=== PATIENT | female | born 1955 | race Caucasian/White ===

== ENCOUNTER 2022-04-07 14:04 | Outpatient (CLI) | payer MEDICARE, BC, SELFPAY ==
--- OUTSIDE RECORDS SUMMARY | 2022-04-07 14:07 | XMS_ITS | Encounter Summary ---
:1955 Author Organization [facility] Address [address] [place] [address] Care Team Providers Name Role Phone Unavailable Primary Care Provider Unavailable Encounter Details Date Type Department Care Team Description 11/11/2021 Clinical Support Healthy Living Brooke Boothe M.D., Ph.D. [address] [place] [phone] Pain Low Back Chronic (Primary Dx); Program in [place], HailyJocelynn Naik PLamont, D.P.T., [facility] [address] [place] [address] [facility] [address] [place] [phone] Social History Tobacco Use Types Packs/Day Years Used Date Smoking Tobacco: Never Smokeless Tobacco: Never Alcohol Habits Answer Date Recorded How often do you have a drink containing alcohol? 2-4 times a month 10/10/2021 How many drinks containing alcohol do you have on a 1 or 2 10/10/2021 typical day when you are drinking? How often do you have six or more drinks on one Never 10/10/2021 occasion? Comment: Not asked Social Isolation Answer Date Recorded In a typical week, how many times do you More than three jewell es a week 10/10/2021 talk on the phone with family, friends, or neighbors? How often do you get together with friends Three times a wee k 10/10/2021 or relatives? How often do you attend anglican or 1 to 4 times per year 09/23 yazdanism services? Do you belong to any clubs or No 10/10/2021 organizations such as anglican groups, unions, fraternal or athletic groups, or school groups? How often do you attend meetings of the Never 10/10/2021 clubs or organizations you belong to? Are you now , , , 10/10/2021 , never or living with a partner? Physical Activity Answer Date Recorded On average, how many days per week do you engage in moderate to 4 days 10/10/2021 strenuous exercise (like walking fast, running, jogging, dancing, swimming, biking, or other activities that cause a light or heavy sweat)? On average, how many minutes do you engage in exercise at th is 50 min 10/10/2021 level? Stress Answer Date Recorded Do you feel stress - tense, restless, nervous, or Only a lit tle 10/10/2021 anxious, or unable to sleep at night because your mind is troubled all the time - these days? Financial Resource Strain Answer Date Recorded How hard is it for you to pay for the very basics like Not h gar[place] at all 10/10/2021 food, housing, medical care, and heating? Intimate Partner Violence Answer Date Recorded Within the last year, have you been afraid of your partner o r No 10/10/2021 ex-partner? Within the last year, have you been humiliated or emotionall y No 10/10/2021 abused in other ways by your partner or ex-partner? Within the last year, have you been kicked, hit, slapped, or No 10/10/2021 otherwise physically hurt by your partner or ex-partner? Within the last year, have you been raped or forced to have any No 10/10/2021 kind of sexual activity by your partner or ex-partner? Food Insecurity Answer Date Recorded Within the past 12 months, you worried that your food would Never true 10/10/2021 run out before you got money to buy more. Within the past 12 months, the food you bought just didn't N ever true 10/10/2021 last and you didn't have money to get more. Transportation Needs Answer Date Recorded In the past 12 months, has lack of transportation kept you f rom No 10/10/2021 medical appointments or from getting medications? In the past 12 months, has lack of transportation kept you f rom No 10/10/2021 meetings, work, or getting things needed for daily living? Housing Stability Answer Date Recorded In the last 12 months, was there a time when you were not ab le No 10/10/2021 to pay the mortgage or rent on time? In the last 12 months, how many places have you lived? 1 10/10/2021 In the last 12 months, was there a time when you did not hav e a No 10/10/[address] sleep or slept in a long-term (including now)? Education Answer Date Recorded What is the highest level of school Associate degree: damien brand, 08/29/2021 you have completed or the highest technical, or vocational p josette degree you have received? 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 female being seen at [facility] regarding Concerns about back pain and neck pain, as well as osteoporosis diagnosis concerns. She recently began Reclast per Dr. Boothe recommendations. She is active, going to the gym 3 times per week, and walking often. She performs a circuit of weight machines with an emphasis on upper body work. She retired 2 years ago. She notes pain in the low back with extended bouts of walking, and with certain other machine weights in the gym setting such as knee extension and chest flys. T- score noted is -3.4 Objective Able to transition to and from floor without issues today Performs lunges with fairly decent form Slight forward flexed posture in the thoracic region Demonstrated and sought feedback on a variety of exercises she performs for strength training We discussed what to do and not do for safety including extensive review of movement precautions with re: flexion, sidebending and rotation in the spine as well as hip rotation and extreme flexion I explained the relevance of T-score and considerations to maintenance of bone density, including use of the spine model Advised regarding more safe and functional exercises to achieve coordination, body mechanics training, and strength for the lower body and upper body including squat to chair, walking lunges, and push-ups at the counter or higher surface. Discussed recommendations about appropriate sets and reps, with the advice to load for achievement of 10 reps per set and performing 3 sets with adequate rest between each. Discussed use of neutral spine and lower body for lifting mechanics Advised re: strategies to increase walking comfort including splitting walks into 2 separate bouts, engaging in smaller step length, and engaging glutes periodically With step off. Also perform a slight posterior pelvic tilt when discomfort occurs to assess whether this reduces strain to the area. Goals Understanding of recommendations through verbalization of concepts discussed Assessment Verbalizes understanding of concepts discussed today including safety considerations Plan Begin making changes within personal programming. Follow up as needed Time spent face to face: 70 minutes Signed by: Jocelynn León P.T., D.P.T., SANDEEP 11/11/2021 11:42 AM CDT documented in this encounter Plan of Treatment Not on filedocumented as of this encounter Visit Diagnoses Diagnosis Pain Low Back Chronic - Primary Osteoporosis documented in this encounter
--- OUTSIDE RECORDS SUMMARY | 2022-04-07 14:07 | XMS_ITS | Clinical Summary ---
:1955 Author Organization [facility] [employer] [place] [address] Care Team Providers Name Role Phone Unavailable Primary Care Provider Unavailable Allergies No known active allergies Medications Medication Sig Dispensed Refills Start Date End Date Status dapsone 25 mg TAKE 2 TABLETS 60 tablet 0 08/11/2016 Active tabletIndications: BY MOUTH ON EVEN Dermatitis DAYS AND 1 herpetiformis TABLET BY MOUTH ON ODD DAYS. 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 Repeat 3-5 years. Jelly Cobb M.D. 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 Arthritis Mother Other Mother migraines Cancer-colon No Family History Relation Name Status Comments Father Maternal Grandmother Mother Social History Tobacco Use Types Packs/Day Years Used Date Never Smoker Smokeless Tobacco: Never Used Tobacco Cessation: Counseling Given: Yes Alcohol Use Standard Drinks/Week Comments Yes 5 (1 standard drink = 0.6 oz pure alcoho l) Sex Assigned at Date Recorded Not on file Obstetrics History Para Term AB IAB SAB Ectopic Multiple Living Live Births 3 3 3 Date Outcome GA Total Labor/2nd/3rd Weight Sex Delivery Anes PTL Piedad A 1 A5 Name Clin Labor Para Para Para Last Filed Vital Signs Vital Sign Reading Time Taken Comments Blood Pressure 127/81 02/04/2016 7:54 AM CDT Pulse 67 02/04/2016 7:54 AM CDT Temperature 36.8 ??C (98.3 ??F) 02/04/2016 7:54 AM CDT Respiratory Rate - - Oxygen Saturation 95% 02/04/2016 7:54 AM CDT Inhaled Oxygen Concentration - - Weight 55.5 kg (122 lb 4 oz) 02/04/2016 7:54 AM CDT Height 160 cm (5' 3) 02/04/2016 7:54 AM CDT Body Mass Index 21.66 02/04/2016 7:54 AM CDT Plan of Treatment Health Maintenance Due Date Last Done Comments COVID-19 vaccine series (#1) 1955 Colonoscopy through age 75 1998 Zoster (shingles) series for age 0904/10/2003 50+ (1 of 2) Depression screening for age 12+ 08/21/2016 08/21/2015 Mammogram for age 45-75 08/21/2016 08/21/2015, 04/24/2014, 12/07/2012, Additional history exists BMI (ht and wt on same day) for 02/03/2017 02/04/2016, 03/2016, age 18+ 08/21/2015 DEXA/DXA scan for age 65+ 2018 09/29/2011, 11/01/2009 , 12/21/2006 Pneumococcal series for age 65+ (1 2018 - PCV) Tetanus booster 07/02/2020 07/02/2010 Lipids for age 45-75 08/22/2020 08/22/2015, 07/23/2010, 12/14/2006 Influenza for age 65+ 03/26/2022 08/21/2015, 04/24/2014, 04/20/2013 Tdap Completed 07/02/2010 Hepatitis C screening for age Completed 04/24/2014 18-79 Results Not on filefrom Last 3 Months Insurance Payer Benefit Plan / Subscriber ID Effective Dates Phone Addre ss Type Group BLUE CROSS BLUE CROSS OF [id number] 2015-Present [address] [place] [address]
--- OUTSIDE RECORDS SUMMARY | 2022-04-07 14:07 | XMS_ITS | Encounter Summary ---
:1955 Author Organization [facility] Address [address] [place] [address] Care Team Providers Name Role Phone Unavailable Primary Care Provider Unavailable Reason for Referral Outpatient (Routine) - Closed Specialty Diagnoses / Procedures Referred By Contact Refer red To Contact Diagnoses Osteoporosis Brooke Boothe M.D., Ph.D. [facility] Procedures DX Lumbar Spine 2-3 Views [address] [place] [address] Referral ID Status Reason Start Date Expiration Date Visits Requ ested Visits Authorized [id number] Closed 10/14/2021 10/14/2022 1 1 Outpatient (Routine) - Closed Specialty Diagnoses / Procedures Referred By Contact Refer red To Contact Diagnoses Osteoporosis Brooke Boothe M.D., Ph.D. [facility] Procedures DX Thoracic Spine 2 Views [address] [place], [place] [phone] Referral ID Status Reason Start Date Expiration Date Visits Requ ested Visits Authorized [id number] Closed 10/14/2021 10/14/2022 1 1 Specialty Diagnoses / Procedures Referred By Contact Refer red To Contact Brooke Boothe M.D., Ph.D. [facility] [address] [place], [place] [phone] Referral ID Status Reason Start Date Expiration Date Visits Requ ested Visits Authorized Reason for Visit Outpatient (Routine) - Closed Specialty Diagnoses / Procedures Referred By Contact Refer red To Contact Endocrinology Diagnoses Osteoporosis Lilly Bhatt M.D. [address] [address] Referral ID Status Reason Start Date Expiration Date Visits Requ ested Visits Authorized [id number] Closed 08/12/2021 08/12/2022 1 1 Encounter Details Date Type Department Care Team Description 10/14/2021 Comprehensive Visit Division of [facility]) (Primary Dx); Endocrinology prabhakar Camarena M.D., [place], [place] Ph.D. [address] [facility] [place] 200 [facility] [phone] [facility] [phone] [place] [address] Social History Tobacco Use Types Packs/Day Years [...] 1 to 4 times per year 09/23 gnosticist services? Do you belong to any clubs [...] place to sleep or slept in a [facility] (including now)? Education Answer Date Recorded What is the highest level of school Associate degree: damien brand, 08/29/2021 you have completed or the highest technical, or vocational p galaram degree you have received? 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 - 10/14/2021 9:00 AM CDT Dietary calcium to achieve a total daily intake of 1200 mg per day. A calcium supplement of up to 600 mg per serving may be used once or twice per day if unable to achieve adequate calcium intake through dietary sources. Total daily vitamin D intake of 800 to 1000 units per day. A vitamin D3 supplement of 800 - 1000 units per day may be taken especially if limited sun exposure and limited intake of vitamin D fortified foods such as milk. Most multivitamin products will provide this amount of vitamin D. Zoledronic acid (Reclast) is a bisphosphonate given by vein once a year for three years to reduce the risk for fractures due to osteoporosis. Zoledronic acid may be continued or stopped after three years depending on risk of fracture. It is important to be well hydrated on the day of the infusion. Patients receiving Zoledronic acid for the first time may experience flu-like symptoms for up to 72 hours after the infusion is received. Tylenol (acetaminophen) 500 mg taken every six hours can minimize these symptoms. This side effectis less likely to occur with subsequent zoledronic acid treatments. The risk of other side effects were reviewed. Good dental hygiene and routine preventative dental care are recommended when taking bisphosphonate medications. You may experience body soreness/achiness, mild fever and headache (flu-like symptoms) after the Reclast infusion. For some, this can be fairly severe (severe bone and muscle pain) and for others, it can be mild, if at all. You can take Tylenol (acetaminophen) or ibuprofen as needed to treat any associated pain. We recommend you take a dose right before the Reclast infusion is given, and also take scheduled doses for 24-48 hours after the infusion (or as needed). We also recommend staying hydrated throughout (drink an extra 1-2 glasses of water prior to and the evening of the infusion), and we giveextra fluids with the infusion as well. Long-term use of the Reclast medication is associated with 2 rare side effects: There is a very rare risk of a jaw complication known as osteonecrosis of the jaw. We advise you seethe dentist on a regular basis and let him/her know you are taking this medication. You should avoidnon-emergent dental implants or extractions if possible while you are on this medication. Also, very rarely, the medication has been associated with a stress fracture that can occur in the side of your thigh bone. A warning sign of this is pain - please let us know if you develop any new, persistent throbbing pain in the sides of your thighs (femur bones). documented in this encounter Consult Notes Brooke Boothe M.D., Ph.D. - 10/14/2021 9:00 AM CDT #1 Osteoporosis No current dental concerns. A little dairy but not a lot. Takes supplements. No falls No oral glucocorticoids. Some low back pain. Overview: 2020 BMD LS T-score -3.4 (hologic DXA in [place]) Fractures None Treatment ERT quit 2016 Alendronate 70 mg weekly 03/2017-07/2017 stopped due to aching hips Reclast 5 mg yearly 09/2021, anticipate 3 years then assess for possible holiday Additional history Celiac disease No tobacco or etoh abuse. No parental hip fracture. Orders: - Endocrinology Referral - Healthy Living Program - Private session (Clinic); Future; Expected date: 10/14/2021 - DX Thoracic Spine 2 Views; Future; Expected date: 10/14/2021 - DX Lumbar Spine 2-3 Views; Future; Expected date: 10/14/2021 #2 Sprue Celiac (HCC) Eats out several times per week. Chooses things that are not likely to have gluten but she is not very confident in the restaurants are very strict. She does have some bloating that she did not have previously. - tTG (Tissue Transglutaminase), Antibody, IgA; Future; Expected date: 10/14/2021 Creatinine 07/2021 0.6, Calcium 10.1 Blood pressure (!) 157/91, pulse 99, height 159.1 cm, weight 55.6 kg. Body mass index is 21.96 kg/m??. Assessment plan #1 osteoporosis Reviewed limitations in her BMD compared to previous due to her [facility] [employer] [facility]. Discussed overall plan for diet exercise and medications. Reviewed IV bisphosphonates or anabolic medication. She does not like needles.Reviewed reclast and the plan, side effects and complications. Recommend 3 years reclast. Assess BMD at local center in 4 years, ie 1 year after third infusion. Clinical circumstances that warrant reconsideration of the plan include, but should be not limited to, the following: additional fractures, initiation of a chronic medication with detrimental effects on bone (oral glucocorticoids, endocrine therapy for breast or prostate cancer), decline in kidney function, intolerance to initial medication and to second line therapy. Follow up: Local PCP can order and manage. Orders Placed This Encounter Procedures ??? DX Thoracic Spine 2 Views ??? DX Lumbar Spine 2-3 Views ??? tTG (Tissue Transglutaminase), Antibody, IgA ??? Healthy Living Program - Private session (Clinic) I personally spent over half of a total 30 minutes face to face with the patient in counseling and discussion and/or coordination of care as described above. documented in this encounter Plan of Treatment Scheduled Referrals Name Type Priority Associated Diagnoses Order [facility] Outpatient Referral Routine Osteoporosis Expect ed: Program - Private 10/14/2021 session (Clinic) (Ammon camarena), Expires: 01/14/2023 documented as of this encounter Results DX Lumbar Spine 2-3 Views (10/16/2021 10:33 AM CDT) Anatomical Region Laterality Modality Lumbar Spine, Musculoskeletal RST LOS, Neuroradiology N/A Digital Radiography ARZ LOS, Muskuloskeletal FLA LOS Specimen (Source) Anatomical Collection Method Collection Time Re ceived Time Location / / Volume Laterality 10/16/2021 1:16 PM CDT Impressions 10/16/2021 1:16 PM CDT Osteopenia. Thoracolumbar curve. No compression fractures. Hypertrophic and degenerative changes in the spine. Surgi annemarie clips in the abdomen. Degenerative changes both SI joints. Narrative 10/16/2021 1:16 PM CDT EXAM: ??DX THORACIC SPINE 2 VIEWS, DX LUMBAR SPINE 2-3 VIEWS Procedure Note Steven Perkins M.D. - 10/16/2021Formatt ing of this note might be different from the original. EXAM: DX THORACIC SPINE 2 VIEWS, DX LUMB AR SPINE 2-3 VIEWS IMPRESSION: Osteopenia. Thoracolumbar curve. No comp ression fractures. Hypertrophic and degenerative changes in the spine. Surgi annemarie clips in the abdomen. Degenerative changes both SI joints. Brooke Boothe M.D., Ph.D. IMG DIAGNOSTIC IMAGING PROCE CASIMIRO DX Thoracic Spine 2 Views (10/16/2021 10:33 AM CDT) Anatomical Region Laterality Modality Thoracic Spine, Musculoskeletal RST LOS, N/A Digital Radiography Neuroradiology ARZ LOS, Muskuloskeletal FLA LOS Specimen (Source) Anatomical Collection Method Collection Time Re ceived Time Location / / Volume Laterality 10/16/2021 1:16 PM CDT Impressions 10/16/2021 1:16 PM CDT Osteopenia. Thoracolumbar curve. No compression fractures. Hypertrophic and degenerative changes in the spine. Surgi annemarie clips in the abdomen. Degenerative changes both SI joints. Narrative 10/16/2021 1:16 PM CDT EXAM: ??DX THORACIC SPINE 2 VIEWS, DX LUMBAR SPINE 2-3 VIEWS Procedure Note Steven Perkins M.D. - 10/16/2021Formatt ing of this note might be different from the original. EXAM: DX THORACIC SPINE 2 VIEWS, DX LUMB AR SPINE 2-3 VIEWS IMPRESSION: Osteopenia. Thoracolumbar curve. No comp ression fractures. Hypertrophic and degenerative changes in the spine. Surgi annemarie clips in the abdomen. Degenerative changes both SI joints. Brooke Boothe M.D., Ph.D. IMG DIAGNOSTIC IMAGING PROCE DURES tTG (Tissue Transglutaminase), Antibody, IgA (10/14/2021 9:58 AM CDT) [facility] gist Method Time Signature Tissue 1.4 <4.0 10/14/2021 [facility] Transglutaminase Ab, (Negative 6:42 PM CDT IgA, S ) U/mL Specimen Anatomical Collection Method Collection Time Receive d Time (Source) Location / / Volume Laterality Blood (Blood, 10/14/2021 9:58 AM 10/15/19 2:30 Venous) CDT PM CDT Brooke Boothe M.D., Ph.D. LAB BLOOD ADD-ON Performing Organization Address City/State/ZIP Code Phon e Number [facility] [address] [place] [address] SUPPORT CENTER [facility] [place] [address] Laboratory Medicine and Pathology [address] [place] documented in this encounter Visit Diagnoses Diagnosis Sprue Celiac - Primary Osteoporosis Osteoporosis documented in this encounter
--- OUTSIDE RECORDS SUMMARY | 2022-04-07 14:07 | XMS_ITS | Encounter Summary ---
:1955 Author Organization [facility] Address [address] [place] [address] Care Team Providers Name Role Phone Unavailable Primary Care Provider Unavailable Reason for Visit Reason Comments Outpatient Infusion Episode Based Medications (Routine) - Closed Specialty Diagnoses / Procedures Referred By Contact Refer red To Contact Diagnoses Osteoporosis Brooke Boothe M.D., Ph.D. [facility] Maria M [address] [facility] [address] [place] [address] [place] [address] Fax: Referral ID Status Reason Start Date Expiration Date Visits Requ ested Visits Authorized [id number] Closed 10/14/2021 10/14/2022 99 99 Encounter Details Date Type Department Care Team Description 10/17/2021 Infusion Department of Infusion Brooke Boothe Ost eoporosis (Primary Dx) Therapy in Teto Hobbs, Ph.D. [place], [place] [address] [place] [phone] Social History Tobacco Use Types Packs/Day Years [...] or relatives? How often do you attend roman catholic or 1 to 4 times per year 09/23 sabianist services? Do you belong to any clubs or No 10/10/2021 organizations such as roman catholic groups, unions, fraHealthEdge or athletic groups, or school groups? How [...] place to sleep or slept in a assisted (including now)? Education Answer Date Recorded What is the highest level of school Associate degree: damien brand, 08/29/2021 you have completed or the highest technical, or vocational p josette degree you have received? Sex Assigned at Date Recorded Female 08/28/2021 7:35 PM MDS RN documented as of this encounter Last Filed Vital Signs Vital Sign Reading Time Taken Comments Blood Pressure 139/74 10/17/2021 9:02 AM CDT Pulse 76 10/17/2021 9:02 AM CDT Temperature 36.4 ??C (97.5 ??F) 10/17/2021 9:02 AM CDT Respiratory Rate 18 10/17/2021 9:02 AM CDT Oxygen Saturation 99% 10/17/2021 9:02 AM CDT Inhaled Oxygen Concentration - - Weight - - Height - - Body Mass Index - - documented in this encounter Plan of Treatment Not on filedocumented as of this encounter Visit Diagnoses Diagnosis Osteoporosis - Primary documented in this encounter Administered Medications Inactive Administered Medications - up to 3 most recent administrations Medication Order MAR Action Action Date Dose Rate Site sodium chloride 0.9 % injection 10 Given 10/17/2021 9:23 AM CDT 10 mL mL 10 mL, intra-catheter, As needed, line care, Starting on Wed10/17/21 at 0904, Prior to blood sampling, post blood transfusion, or post blood sampling. Given 10/17/2021 9:05 AM CDT 10 mL zoledronic hkut-vuyzywqb-masds IVPB 5 New Bag 10/17/2021 9:05 AM CDT 5 mg 400 mL/hr mg (RECLAST) 5 mg, intravenous, at 400 mL/hr, Administer over 15 Minutes, Once, On Wed10/17/21 at 0915, For 1 dose, Notify Provider for creatinine clearance less than 35mL/min as treatment is not recommended. Monitor serum creatinine before each dose, Restriction Criteria (Pharmacy will review and approve if criteria met): Osteoporosis patient who has failed or cannot tolerate one of the oral bisphosphonates, alendronate (Fosamax) and risendronate (Actonel) documented in this encounter
--- OUTSIDE RECORDS SUMMARY | 2022-04-07 14:07 | XMS_ITS | Encounter Summary ---
:1955 Author Organization [facility] Address [address] [place] [address] Care Team Providers Name Role Phone Unavailable Primary Care Provider Unavailable Encounter Details Date Type Department Care Team Description 06/05/2021 Orders Only [facility] P[facility] TH Sa tyler Gomes M.D. [address] [place], [place] [phone] (Wo rk) Social History Tobacco Use Types Packs/Day Years [...] or relatives? How often do you attend lutheran or 1 to 4 times per year 09/23 mosque services? Do you belong to any clubs or No 10/10/2021 organizations such as lutheran groups, unions, fraternal or athletic groups, or [...] place to sleep or slept in a fpc (including now)? Sex Assigned at Date Recorded Female 08/28/2021 7:35 PM LEGAL LIBRARIAN documented as of this encounter Plan of Treatment Not on filedocumented as of this encounter Visit Diagnoses Not on filedocumented in this encounter
--- OUTSIDE RECORDS SUMMARY | 2022-04-07 14:07 | XMS_ITS | Encounter Summary ---
:1955 Author Organization [facility] Address [address] [place] [address] Care Team Providers Name Role Phone Unavailable Primary Care Provider Unavailable Encounter Details Date Type Department Care Team Description 10/16/2021 Hospital Encounter Department of Laboratory Yeny Boothe, Osteoporosis Medicine in Teto Hobbs, Ph.D. [address] [phone] Social History Tobacco Use Types Packs/Day Years [...] or relatives? How often do you attend anabaptist or 1 to 4 times per year 09/23 amish services? 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 per tablet melatonin 5 mg tablet Take 5 mg by mouth. 0 documented as of this encounter Miscellaneous Notes Result Encounter Note - Brooke Boothe M.D., Ph.D. - 10/16/2021 3:39 PM CDT Your blood tests are normal. The xrays do not show compression fractures. Follow up with your primary care doctor to get the Reclast. documented in this encounter Plan of Treatment Not on filedocumented as of this encounter Procedures Procedure Name Priority Date/Time Associated Diagnosis Comme nts CREATININE WITH Routine 10/16/2021 10:46 Osteoporosis Results for this EGFR, S/P AM CDT procedure are i n the results section. CALCIUM, TOT, S/P Routine 10/16/2021 10:46 Osteoporosis Result s for this AM CDT procedure are i n the results section. documented in this encounter Results Creatinine with Estimated GFR (10/16/2021 10:46 AM CDT) P athologist Signature Creatinine 0.76 0.59 - 10/16/2021 CNFL 1.04 mg/dL 11:53 AM CDT eGFR-Black/Afric >90 >=60 10/16/2021 CNFL an Dominican mL/min/BSA 11:53 AM CDT Comment: ----ADDITIONAL INFORMATION---- Estimated GFR calculated using the 2009 CKD_EPI creatinine equation. eGFR Non-Black/ 81 >=60 mL/min/BSA 10/16/2021 11:53 AM CDT CNFL Comment: ----ADDITIONAL INFORMATION---- Estimated GFR calculated using the 2009 CKD_EPI creatinine equation. Specimen Anatomical Collection Method Collection Time Receive d Time (Source) Location / / Volume Laterality Blood (Blood, 10/16/2021 10:46 10/16/2021 Venous) AM CDT 10:47 AM CDT Brooke Boothe M.D., Ph.D. LAB BLOOD ADD-ON Performing Organization Address City/[facility] Phon e Number [address] [address] [place] [address] [address] Calcium, Total (10/16/2021 10:46 AM CDT) P athologist Signature Calcium, Total, 9.7 8.8 - 10.2 10/16/2021 CNFL P mg/dL 11:53 AM CDT Specimen Anatomical Collection Method Collection Time Receive d Time (Source) Location / / Volume Laterality Blood (Blood, 10/16/2021 10:46 10/16/2021 Venous) AM CDT 10:47 AM CDT Brooke Boothe M.D., Ph.D. LAB BLOOD ADD-ON Performing Organization Address City/[facility] Phon e Number [address] [address] [place] [address] [address] documented in this encounter Visit Diagnoses Diagnosis Osteoporosis documented in this encounter
--- OUTSIDE RECORDS SUMMARY | 2022-04-07 14:07 | XMS_ITS | Encounter Summary ---
:1955 Author Organization [facility] Address [address] [place] [address] Care Team Providers Name Role Phone Unavailable Primary Care Provider Unavailable Reason for Visit Reason Comments Skin Problem recheck DH Appointment Request (Routine) - Closed Specialty Diagnoses / Procedures Referred By Contact Refer red To Contact Family Medicine Referral ID Status Reason Start Date Expiration Date Visits Requ ested Visits Authorized [id number] Closed 04/05/2018 04/05/2019 1 Encounter Details Date Type Department Care Team Description 06/14/2018 Office Visit Department of Pedro Emmanuel Dermatitis He rpetiformis Dermatology in Teto Irvin M.D. (Primary Dx) [place], [place] [address] [phone] Social History Tobacco Use Types Packs/Day Years [...] or relatives? How often do you attend oriental orthodox or 1 to 4 times per year 09/23 nondenominational services? Do you belong to any clubs or No 10/10/2021 organizations such as oriental orthodox groups, unions, fraternal or athletic groups, or [...] place to sleep or slept in a alf (including now)? Sex Assigned at Date Recorded Female 08/28/2021 7:35 PM BLOCKER AND POLISHER GOLD WHEEL documented as of this encounter Progress Notes Pedro Emmanuel M.D. - 06/14/2018 3:15 PM CST CHIEF COMPLAINT Recheck dermatitis herpetiformis HISTORY OF THE PRESENT ILLNESS Gloria Tracy is a pleasant 63 y.o. female who follows up for recheck dermatitis herpetiformis. I last saw her on 11/08/17 at the [facility] and she was supposed to return in 2 months' time but did not return for that appointment and returns today. She was diagnosed with DH prior to seeing me in the past elsewhere, and we reconfirmed the diagnosis with a biopsy sent for routine pathology and DIF that was consistent with DH. She also had elevated tTG levels of 33 at one point in time as well as elevated SRINIVAS, but these had normalized when last checked in October 2017. She has not had any clinical activity with regard to her skin for at least 11-13 months. She was seen by Dr. Bravo, a GI specialist at [facility], who recommended a strict gluten free diet. GI endoscopy done at [facility] in November 2016 showed changes compatible with celiac disease. She states that she adheres to this regularly. She had not had any skin involvement as noted above for several months at her visit 11/08/17, so we tapered her dapsone from 25 mg daily to every other day. She was instructed to continuethe dapsone for 3 months, but she stopped it in late November. She has not been seen or done blood work since October. Today, she reports no new rashes or blisters. She has no GI complaints today, and denies a ny GI symptoms including bloating and diarrhea. PAST MEDICAL HISTORY Dermatitis herpetiformis Celiac disease diagnosed by EGD November 2016 PHYSICAL EXAM General: Awake, alert, in no acute distress, and with appropriate affect. Skin: Examination of the arms, legs, elbows, and knees reveals no active dermatitis herpetiformis, rashes, blisters, or vesicles. IMPRESSION AND PLAN #1 History of dermatitis herpetiformis and celiac disease Currently, she has no evidence for active dermatitis herpetiformis on clinical examination of her skin. With regards to her celiac disease, she denies any symptoms. She has been off dapsone since November 2017 and remains on a gluten free diet. Blood work for celiac testing will be drawn today and I will call her in one week with the results if they are abnormal. I emphasized the importance of continuing her gluten free diet. Dr. Bravo, the GI specialist, has recommended a follow up endoscopy in November 2018. Follow up with me at that time and also with GI. The patient will follow up immediately if the rash returns or she notices any changes. PATIENT EDUCATION Ready to learn. No apparent learning barriers were identified. Learning preferences include listening. Explained diagnosis and treatment plan; patient/guardian of patient expressed understanding of thecontent. By signing my name below, I, Maria D Chan, attest that this documentation has been prepared under the direction and in the presence of Pedro Emmanuel M.D.. Electronically Signed: mara Magaña. 06/14/2018. 3:29 PM . Pedro Leija M.D., personally performed the services described in this documentation. All medical record entries made by the scribe were at my direction and in my presence. I have reviewed the chart and discharge instructions (if applicable) and agree that the record reflects my personal performance and is accurate and complete. Pedro Emmanuel M.D. . 06/14/2018. 4:36 PM. KER AND POLISHER GOLD WHEEL documented in this encounter Plan of Treatment Not on filedocumented as of this encounter Procedures Procedure Name Priority Date/Time Associated Diagnosis Comme nts CELIAC DISEASE SEROLOGY Routine 06/14/2018 4:10 Dermatitis R esults for this CASCADE, S PM BLOCKER AND POLISHER GOLD WHEEL Herpetiformis procedure are in the results section. TISSUE TRANSGLUTAMINASE Routine 06/14/2018 4:10 R esults for this (TTG) AB, IGA, S PM BLOCKER AND POLISHER GOLD WHEEL procedure a re in the results section. documented in this encounter Results tTG (Tissue Transglutaminase), Antibody, IgA (06/14/2018 4:10 PM BLOCKER AND POLISHER GOLD WHEEL) [facility] Method Time Signature Tissue 1.6 <4.0 06/15/2018 [facility] Transglutaminase Ab, (Negative 3:20 PM BLOCKER AND POLISHER GOLD WHEEL LABORAT ORIES - IgA, S ) U/mL [facility] Specimen Anatomical Collection Method Collection Time Receive d Time (Source) Location / / Volume Laterality Blood 06/14/2018 4:10 PM 8 3:20 BLOCKER AND POLISHER GOLD WHEEL PM BLOCKER AND POLISHER GOLD WHEEL Pedro Emmanuel M.D. LAB BLOOD ADD-ON Performing Organization Address [facility] Phon e Number [facility] LABORATORIES - [address] Celiac Disease Serology [place] (06/14/2018 4:10 PM BLOCKER AND POLISHER GOLD WHEEL) Component Value Ref Test Analysis Performed At [facility] Method Time Signature Immunoglobulin A 193 61 - 06/15/2018 [facility] (IgA), S 356 9:44 AM LABORATORIES - mg/dL BLOCKER AND POLISHER GOLD WHEEL [facility] Celiac Disease Negative serology. Celiac di sease unlikely. However, approximately 10% of 06/15/2018 [facility] Interpretation patients with celiac disease are seronegative. Also, patients who are already 9:43 PM LABORATORIES - adhering to a gluten-free diet may be seronegative. If heber iac disease is [facility] highly clinically suspected, consider HLA-DQ typing. [facility] Specimen Anatomical Collection Method Collection Time Receive d Time (Source) Location / / Volume Laterality Blood (Blood, 06/14/2018 4:10 PM 06/15/20 18 6:23 Venous) BLOCKER AND POLISHER GOLD WHEEL AM BLOCKER AND POLISHER GOLD WHEEL Pedro Emmanuel M.D. LAB BLOOD ADD-ON Performing Organization Address City/[facility] Code Phon e Number [facility] LABORATORIES - [address] documented in this encounter Visit Diagnoses Diagnosis Dermatitis Herpetiformis - Primary documented in this encounter
--- OUTSIDE RECORDS SUMMARY | 2022-04-07 14:07 | XMS_ITS | Encounter Summary ---
:1955 Author Organization [facility] Address [address] [place] [address] Care Team Providers Name Role Phone Unavailable Primary Care Provider Unavailable Encounter Details Date Type Department Care Team Description 10/14/2021 Hospital Encounter Department of Brooke Boothe Sprue Celiac ([facility]) Laboratory Medicine M.DSydney, Ph.D. and Pathology, [address] in [place], [place] [phone] [place] [address] [place], [place] (Work) [phone] Social History Tobacco Use Types Packs/Day Years [...] or relatives? How often do you attend pentecostalism or 1 to 4 times per year 09/23 mandaen services? Do you belong to any clubs or No 10/10/2021 organizations such as pentecostalism groups, unions, fraternal or athletic groups, or [...] minutes do you engage in exercise at is 50 min 10/10/2021 level? Stress Answer [...] place to sleep or slept in a mcfp (including now)? Education Answer Date Recorded What is the highest level of school Associate degree: damien barnd, 08/29/2021 you have completed or the highest technical, or vocational p josette degree you have received? Sex Assigned at Date Recorded Female 08/28/2021 7:35 PM OBSTETRICS TECH documented as of this encounter Medications at Time of Discharge Medication Sig Dispensed Refills Start Date End Date calcium carbonate-vitamin Take 1 tablet by 0 D3 1,500 mg (600 mg mouth daily with calcium)-5 mcg (200 Unit) breakfast. per tablet melatonin 5 mg tablet Take 5 mg by mouth. 0 documented as of this encounter Plan of Treatment Not on filedocumented as of this encounter Procedures Procedure Name Priority Date/Time Associated Comments Diagnosis TISSUE TRANSGLUTAMINASE Routine 10/14/2021 9:58 Sprue Celiac ( [facility]) Results for this (TTG) AB, IGA, S AM CDT procedure a re in the results section. documented in this encounter Results tTG (Tissue Transglutaminase), Antibody, IgA (10/14/2021 9:58 AM CDT) Patholo gist Method Time Signature Tissue 1.4 <4.0 10/14/2021 [facility] Transglutaminase Ab, (Negative 6:42 PM CDT IgA, S ) U/mL Specimen Anatomical Collection Method Collection Time Receive d Time (Source) Location / / Volume Laterality Blood (Blood, 10/14/2021 9:58 AM 10/15/19 2:30 Venous) CDT PM CDT Brooke Boothe M.D., Ph.D. LAB BLOOD ADD-ON Performing Organization Address City/State/ZIP Code Phon e Number [facility] [address] [place] [address] SUPPORT CENTER [facility] [place] [address] Laboratory Medicine and Pathology [address] ARMSTRONG documented in this encounter Visit Diagnoses Diagnosis Sprue Celiac documented in this encounter
--- OUTSIDE RECORDS SUMMARY | 2022-04-07 14:07 | XMS_ITS | Encounter Summary ---
:1955 Author Organization [facility] Address [address] [place] [address] Care Team Providers Name Role Phone Unavailable Primary Care Provider Unavailable Reason for Referral Outpatient (Routine) - Closed Specialty Diagnoses / Procedures Referred By Contact Refer red To Contact Endocrinology Diagnoses Osteoporosis Lilly Bhatt M.D. [facility] [address] [place] [address] Referral ID Status Reason Start Date Expiration Date Visits Requ ested Visits Authorized [id number] Closed 08/12/2021 08/12/2022 1 1 ENTER INSPECTOR Encounter Details Date Type Department Care Team Description 08/12/2021 [facility] Lilly Bhatt Osteoporosis AND SANDRA Camarena M.D. (Primary Dx) [address] [address] [phone] Social History Tobacco Use Types Packs/Day Years [...] or relatives? How often do you attend nondenominational or 1 to 4 times per year 09/23 anabaptism services? Do you belong to any clubs or No 10/10/2021 organizations such as nondenominational groups, unions, fraternal or athletic groups, or [...] or slept in a assisted (including now)? Sex Assigned at Date Recorded Female 08/28/2021 7:35 PM CARPENTER INSPECTOR documented as of this encounter Plan of Treatment Scheduled Referrals Name Type Priority Associated Diagnoses Order S [facility] Endocrinology Referral Outpatient Routine Osteoporosis Expec mirta: Referral 08/12/2021 (Approximate), Expires: 11/10/2022 documented as of this encounter Visit Diagnoses Diagnosis Osteoporosis - Primary documented in this encounter
--- OUTSIDE RECORDS SUMMARY | 2022-04-07 14:07 | XMS_ITS | Clinical Summary ---
:[address] [facility] Address [address] [place] [address] Care Team Providers Name Role Phone Unavailable Primary Care Provider Unavailable Source Comments Patient records contain information from all sites at [facility]. For routine questions regarding patient records, call [phone] during business hours, M-F 8:00 AM - 5:00 PM Central Time. Record requests for emergency care only can be directed to [phone] at any time.[facility] Allergies No known active allergies Medications Medication Sig Dispensed Refills Start Date End Date Status melatonin 5 mg tablet Take 5 mg by 0 Active mouth. calcium Take 1 tablet by 0 Act delmi carbonate-vitamin D3 mouth daily with 1,500 mg (600 mg breakfast. calcium)-5 mcg (200 Unit) per tablet Active Problems Problem Noted Date Osteoporosis 10/14/2021 Overview: 2020 BMD LS T-score -3.4 (hologic DXA in [place]) Fractures None Treatment ERT quit 2016 Alendronate 70 mg weekly 03/2017-07/2017 s topped due to aching hips Reclast 5 mg yearly 09/2021, anticipate 3 years then assess for possible holiday Additional history Celiac disease No tobacco or etoh abuse. No parental hip fracture. Sprue Celiac 01/04/2017 Social History Tobacco Use Types Packs/Day Years [...] or relatives? How often do you attend moravian or 1 to 4 times per year 09/23 baptism services? Do you belong to any clubs or No 10/10/2021 organizations such as moravian groups, unions, fra[employer] Online Health or athletic groups, or school groups? How [...] place to sleep or slept in a halfway (including now)? Education Answer Date Recorded What is the highest level of school Associate degree: damien brand, 08/29/2021 you have completed or the highest technical, or vocational p josette degree you have received? 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 Last Filed Vital Signs Vital Sign Reading Time Taken Comments Blood Pressure 139/74 10/17/2021 9:02 AM CDT Pulse 76 10/17/2021 9:02 AM CDT Temperature 36.4 ??C (97.5 ??F) 10/17/2021 9:02 AM CDT Respiratory Rate 18 10/17/2021 9:02 AM CDT Oxygen Saturation 99% 10/17/2021 9:02 AM CDT Inhaled Oxygen Concentration - - Weight 55.6 kg (122 lb 9.2 oz) 10/14/2021 8:45 AM CDT Height 159.1 cm (5' 2.64) 10/14/2021 8:45 AM CDT Body Mass Index 21.96 10/14/2021 8:45 AM CDT Plan of Treatment Health Maintenance Due Date Last Done Comments CT Colonography 1955 Cologuard 1955 Colonoscopy 1955 Colorectal Cancer Screening 1955 FIT 1955 Fasting Glucose for Diabetes 1955 Screening Hepatitis C Screening 1955 Zoster Vaccines (1 of 2) 2003 Mammogram 12/24/2016 12/25/2015 (Performed elsewhere) Depression Screening (Annual 07/26/2021 PHQ-2) Fall Risk Screen (Annual) 07/26/2021 COVID-19 Vaccine (4 - Booster for 10/03/2021 06/05/2021, , Moderna series) 09/25/2020 Influenza Vaccine (#1) 2022 05/27/2021, 06/04/2020, 06/05/2019, Additional history exists DTaP,Tdap,and Td Vaccines (4 - Td 03/17/2031 03/17/2021, , or Tdap) 10/22/1999 Pneumococcal vaccine (65+ years) Completed 03/17/2021, 05/2019 Medical Devices Implanted Type Area District Representative Device Shelf Model / Identifier Expiration Date Ser ial / Lot Conversions - Default Historical Implant Device Misc Other Implanted: 01/11/2017 (Quantity not on file) Description: Device Status Text - MiscOt her. surgical clip. Insurance Payer Benefit Plan Subscriber ID Effective Phone Address Typ e / Group Dates MEDICARE MEDICARE A [id number] 2018-Pres [address] [place] [address] BLUE CROSS BCBS COWLITZ [id number] 2019-Pres [phone] PO HAMIDA X Cost Share BLUE SHIELD BLUE COST ent [id number] SHARE OSMANI SILVEIRA [id number]
--- OUTSIDE RECORDS SUMMARY | 2022-04-07 14:07 | XMS_ITS | Encounter Summary ---
:1955 Author Organization [facility] Address [address] [place] [address] Care Team Providers Name Role Phone Unavailable Primary Care Provider Unavailable Reason for Referral Outpatient (Routine) - Closed Specialty Diagnoses / Procedures Referred By Contact Refer red To Contact Diagnoses Osteoporosis Brooke Boothe M.D., Ph.D. [facility] Procedures DX Lumbar Spine 2-3 Views [address] [place] [address] Referral ID Status Reason Start Date Expiration Date Visits Requ ested Visits Authorized [id number] Closed 10/14/2021 10/14/2022 1 1 Outpatient (Routine) - Closed Specialty Diagnoses / Procedures Referred By Contact Refer red To Contact Diagnoses Osteoporosis Brooke Boothe M.D., Ph.D. [facility] Procedures DX Thoracic Spine 2 Views [address] [place] [address] Referral ID Status Reason Start Date Expiration Date Visits Requ ested Visits Authorized [id number] Closed 10/14/2021 10/14/2022 1 1 Reason for Visit Outpatient (Routine) - Closed Specialty Diagnoses / Procedures Referred By Contact Refer red To Contact Diagnoses Osteoporosis Brooke Boothe M.D., Ph.D. [facility] Procedures DX Lumbar Spine 2-3 Views [address] [place] [address] Referral ID Status Reason Start Date Expiration Date Visits Requ ested Visits Authorized [id number] Closed 10/14/2021 10/14/2022 1 1 Encounter Details Date Type Department Care Team Description 10/16/2021 Hospital Encounter Department of Radiology Brooke Boothe, Osteoporosis in Teto Wilder M.D., Ph.D. [address] [place] [phone] Social History Tobacco Use Types Packs/Day Years [...] or relatives? How often do you attend orthodox or 1 to 4 times per year 09/23 buddhist services? Do you belong to any clubs or No 10/10/2021 organizations such as orthodox groups, unions, fraternal or athletic groups, [...] place to sleep or slept in a long term (including now)? Education Answer Date Recorded What is the highest level of school Associate degree: damien brand, 08/29/2021 you have completed or the highest technical, or vocational p rogram degree you have received? 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 DX THORACIC SPINE RAD - Routine 10/16/2021 10:33 Osteoporosis Resul ts for this 2 VIEWS (most inpatients AM CDT procedure a re in and all the results outpatients) section. documented in this encounter Results DX Lumbar Spine 2-3 [...] M.D., Ph.D. IMG DIAGNOSTIC IMAGING PROCE CASIMIRO documented in this encounter Visit Diagnoses Diagnosis Osteoporosis documented in this encounter
--- OUTSIDE RECORDS SUMMARY | 2022-04-07 14:08 | XMS_ITS | Encounter Summary ---
:1955 Author Organization [facility] Address [address] [place] [address] Care Team Providers Name Role Phone Unavailable Primary Care Provider Unavailable Encounter Details Date Type Department Care Team Description 02/07/2010 Hospital Encounter HX NO MAPPING Social History Tobacco Use Types Packs/Day Years Used Date Smoking Tobacco: Never Assessed Alcohol Habits Answer Date Recorded How often [...] or relatives? How often do you attend taoism or 1 to 4 times per year 09/23 restorationist services? Do you belong to any clubs or No 10/10/2021 organizations such as taoism groups, unions, fraternal or athletic groups, or [...] place to sleep or slept in a detention (including now)? 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
--- OUTSIDE RECORDS SUMMARY | 2022-04-07 14:08 | XMS_ITS | Encounter Summary ---
:1955 Author Organization [facility] Address [address] [place] [address] Care Team Providers Name Role Phone Unavailable Primary Care Provider Unavailable Encounter Details Date Type Department Care Team Description 05/25/2018 Clinical Communication Department of Pedro Emmanuel, Dermatology in [address] [phone] Social History Tobacco Use Types Packs/Day Years Used Date Smoking Tobacco: Never Alcohol Habits Answer Date Recorded [...] or relatives? How often do you attend jewish or 1 to 4 times per year 09/23 jainism services? Do you belong to any clubs or No 10/10/2021 organizations such as jewish groups, unions, fraternal or athletic groups, or [...] place to sleep or slept in a half-way (including now)? Sex Assigned at Date Recorded Female 08/28/2021 7:35 PM HEAD TELLER documented as of this encounter Miscellaneous Notes Telephone Encounter - Evette Peguero R.N. - 05/30/2018 4:40 PM CST Spoke with Dr. Emmanuel and he would like to see patient at her appointment on 06/14/18 before any blood work is drawn. If he determines at her appointment that she still needs blood work he will have it done here in [facility] at that time. Call placed to patient and she was informed of the above. TELLER Telephone Encounter - Lilly Rider - 05/25/2018 11:38 AM CDT Patient is wondering if the blood work that is normally done at the appointment can be sent to [facility] so it can be done beforehand. Please reach out to the patient at [phone]. Thank you! documented in this encounter Plan of Treatment Not on filedocumented as of this encounter Visit Diagnoses Not on filedocumented in this encounter
[2022-04-07 17:03] LABS: Chloride* 102 mmol/L (96-114); Potassium* 4.2 mmol/L (3.6-5.1); Sodium* 138 mmol/L (135-149)
[2022-04-07 17:06] LABS: Blood Urea Nitrogen* 20 mg/dL (7-30); Carbon Dioxide* 28 mmol/L (20-32); Creatinine* 0.7 mg/dL (0.5-1.5); Estimated Glomerular Filt Rate 94 ml/min; Glucose* 101 mg/dL (60-115)
[2022-04-07 17:07] LABS: Calcium* 9.1 mg/dL (8.4-10.6)
[2022-04-07 17:15] LABS: Creatinine Urine 106.5 mg/dL
[2022-04-07 17:20] LABS: Microalbumin Creatinine Ratio 0 mg/g (0-30); Microalbumin Urine < 1 mg/dL
== END 2022-04-07 14:05 | disposition home or self-care (01) ==
PROVIDERS: PCP Internal Medicine; Visit Provider Internal Medicine
DX: Z00.00 Encounter for general adult medical examination without abnormal findings (principal); M81.0 Age-related osteoporosis without current pathological fracture; Z90.5 Acquired absence of kidney; Z85.528 Personal history of other malignant neoplasm of kidney; M54.50 Low back pain, unspecified; R82.90 Unspecified abnormal findings in urine
CPT/HCPCS: 80048; 82043; 82570; 87086

== ENCOUNTER 2022-05-28 13:25 | Outpatient (CLI) | payer MEDICARE, BC, SELFPAY ==
--- OUTSIDE RECORDS SUMMARY | 2022-05-28 13:29 | XMS_ITS | Clinical Summary ---
:1955 Author Organization [facility] [place] [address] Care Team Providers Name Role Phone Unavailable [...] Type Group BLUE CROSS BL[employer] OF [id number] 2015-Present [address] [place] [address]
--- OUTSIDE RECORDS SUMMARY | 2022-05-28 13:29 | XMS_ITS | Encounter Summary ---
:1955 Author Organization [facility] Address [address] [place] [address] Care Team Providers Name Role Phone Unavailable Primary Care Provider Unavailable Encounter Details Date Type Department Care Team Description 10/16/2021 Hospital Encounter Department of Laboratory Yeny Boothe, Osteoporosis Medicine in [place] Hobbs, Ph.D. [address] [phone] Social History Tobacco Use Types Packs/Day Years [...] more drinks on one Never 10/10/2021 occasion? Social Isolation Answer Date Recorded In a typical week, how many times do you More than three jewell es a week 10/10/2021 talk on the phone with family, friends, or neighbors? How often do you get together with friends Three times a wee k 10/10/2021 or relatives? How often do you attend religious or 1 to 4 times per year 09/23 uatsdin services? Do you belong to any clubs or No 10/10/2021 organizations such as religious groups, unions, fraternal or athletic groups, or [...] place to sleep or slept in a [place] [facility] (including now)? Education Answer Date Recorded What is the highest level of school Associate degree: damien brand, 08/29/2021 you have completed or the highest technical, or vocational p josette degree you have received? 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 eGFR Non-Black/ 81 >=60 mL/min/BSA 10/16/2021 11:53 AM CDT [place] Comment: ----ADDITIONAL INFORMATION---- Estimated GFR calculated using the 2009 CKD_EPI creatinine equation. Specimen Anatomical Collection Method Collection Time Receive d Time (Source) Location / / Volume Laterality Blood (Blood, 10/16/2021 10:46 10/16/2021 Venous) AM CDT 10:47 AM CDT Brooke Boothe M.D., Ph.D. LAB BLOOD ADD-ON Performing Organization Address City/[facility] Phon e Number [address] [address] [place] [address] System [address] Calcium, Total (10/16/2021 10:46 AM CDT) P athologist Signature Calcium, Total, 9.7 8.8 - 10.2 10/16/2021 FL P mg/dL 11:53 AM CDT Specimen Anatomical Collection Method Collection Time Receive d Time (Source) Location / / Volume Laterality Blood (Blood, 10/16/2021 10:46 10/16/2021 Venous) AM CDT 10:47 AM CDT Brooke Boothe M.D., Ph.D. LAB BLOOD ADD-ON Performing Organization Address City/[facility] Phon e Number [address] [address] [place] [address] [address] documented in this encounter Visit Diagnoses Diagnosis Osteoporosis documented in this encounter
--- OUTSIDE RECORDS SUMMARY | 2022-05-28 13:29 | XMS_ITS | Encounter Summary ---
:1955 Author Organization [facility] Address [address] [place] [address] Care Team Providers Name Role Phone Unavailable Primary Care Provider Unavailable Reason for Referral Outpatient (Routine) - Closed Specialty Diagnoses / Procedures Referred By Contact Refer red To Contact Diagnoses Osteoporosis Brooke Boothe M.D., Ph.D. [facility] Procedures DX Lumbar Spine 2-3 Views [address] [place] [address] Referral ID Status Reason Start Date Expiration Date Visits Requ ested Visits Authorized [id number] Closed 10/14/2021 10/14/2022 1 1 Outpatient (Routine) - Closed Specialty Diagnoses / Procedures Referred By Contact Refer red To Contact Diagnoses Osteoporosis Brooke Boothe M.D., Ph.D. [facility] Procedures DX Thoracic Spine 2 Views [address] [place] [address] Referral ID Status Reason Start Date Expiration Date Visits Requ ested Visits Authorized [id number] Closed 10/14/2021 10/14/2022 1 1 Reason for Visit Outpatient (Routine) - Closed Specialty Diagnoses / Procedures Referred By Contact Refer red To Contact Diagnoses Osteoporosis Brooke Boothe M.D., Ph.D. [facility] Procedures DX Lumbar Spine 2-3 Views [address] [place] [address] Referral ID Status Reason Start Date Expiration Date Visits Requ ested Visits Authorized [id number] Closed 10/14/2021 10/14/2022 1 1 Encounter Details Date Type Department Care Team Description 10/16/2021 Hospital Encounter Department of Radiology Brooke Boothe, Osteoporosis in Teto Wilder M.D., Ph.D. [address] [place] [phone] Social History Tobacco Use Types Packs/Day Years [...] place to sleep or slept in a retirement (including now)? Education Answer Date Recorded What is the highest level of school Associate degree: damien brand, 08/29/2021 you have completed or the highest technical, or vocational p [facility] degree you have received? 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
--- OUTSIDE RECORDS SUMMARY | 2022-05-28 13:29 | XMS_ITS | Encounter Summary ---
:1955 Author Organization [facility] Address [address] [place] [address] Care Team Providers Name Role Phone Unavailable Primary Care Provider Unavailable Reason for Visit Reason Comments Outpatient Infusion Episode Based Medications (Routine) - Closed Specialty Diagnoses / Procedures Referred By Contact Refer red To Contact Diagnoses Osteoporosis Brooke Boothe M.D., Ph.D. [facility] [[email or web address] Maria M [address] [facility] [address] [place] [address] [place] [address] Fax: Referral ID Status Reason Start Date Expiration Date Visits Requ ested Visits Authorized [id number] Closed 10/14/2021 10/14/2022 99 99 Encounter Details Date Type Department Care Team Description 10/17/2021 Infusion Department of Infusion Brooke Boothe Ost eoporosis (Primary Dx) Therapy in Teto Hobbs, Ph.D. [place], [place] [address] [place] [address] [place] [phone] Social History Tobacco Use Types Packs/Day Years [...] 1 to 4 times per year 09/23 jewish services? Do you belong to any clubs or No 10/10/2021 organizations such as orthodox groups, unions, fraYouTube or athletic groups, or school groups? How [...] or slept in a half-way (including now)? Education Answer Date Recorded What is the highest level of school Associate degree: damien brand, 08/29/2021 you have completed or the highest technical, or vocational p josette degree you have received? 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
--- OUTSIDE RECORDS SUMMARY | 2022-05-28 13:29 | XMS_ITS | Encounter Summary ---
:1955 Author Organization [facility] Address [address] [place] [address] Care Team Providers Name Role Phone Unavailable Primary Care Provider Unavailable Encounter Details Date Type Department Care Team Description 11/11/2021 Clinical Support Healthy Living Brooke Boothe M.D., Ph.D. [address] [place] [phone] Pain Low Back Chronic (Primary Dx); Program in [place], HailyJocelynn Naik PLamont, D.P.T., [facility] [address] [place] [address] [facility] [address] [place] [phone] Social History Tobacco Use Types Packs/Day Years [...] or relatives? How often do you attend muslim or 1 to 4 times per year 09/23 faith services? 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 female being seen at [facility] regarding Concerns about back [...] 70 minutes Signed by: Jocelynn León P.T., Terrance.P.T., ASNDEEP 11/11/2021 11:42 AM CDT documented in this encounter Plan of Treatment Not on filedocumented as of this encounter Visit Diagnoses Diagnosis Pain Low Back Chronic - Primary Osteoporosis documented in this encounter
--- OUTSIDE RECORDS SUMMARY | 2022-05-28 13:29 | XMS_ITS | Clinical Summary ---
:1955 Author Organization [facility] Address [address] [place] [address] Care Team Providers Name Role Phone Unavailable Primary Care Provider Unavailable Source Comments Patient records contain information from all sites at [facility]. For routine questions regarding patient records, call [phone] during business hours, M-F 8:00 AM - 5:00 PM Central Time. Record requests for emergency care only can be directed to [phone] at any time.[facility] Allergies No known active allergies Medications Medication [...] BMD LS T-score -3.4 (hologic DXA in [place]) Fractures None Treatment ERT quit 2016 Alendronate [...] or relatives? How often do you attend jainism or 1 to 4 times per year 09/23 zoroastrianism services? Do you belong to any clubs or No 10/10/2021 organizations such as jainism groups, unions, fraVoyage Medical or athletic groups, or school groups? 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 Last Filed Vital Signs Vital Sign Reading [...] 07/26/2021 PHQ-2) Fall Risk Screen (Annual) 07/26/2021 Influenza Vaccine (#1) 2022 05/27/2021, 06/04/2020, 06/05/2019, Additional history exists DTaP,Tdap,and Td Vaccines (4 - Td 03/17/2031 03/17/2021, , or Tdap) 10/22/1999 Pneumococcal vaccine (65+ years) Completed 03/17/2021, 05/2019 COVID-19 Vaccine Completed 04/27/2022, 06/05/2021, 10/25/2020, Additional history exists Medical Devices Implanted Type Area Business Systems Advisor Device Shelf Model / Identifier Expiration Date Ser ial / Lot Conversions - Default Historical Implant Device Misc Other Implanted: 01/11/2017 (Quantity not on file) Description: Device Status Text - MiscOt her. surgical clip. Insurance Payer Benefit Plan Subscriber ID Effective Phone Address Typ e / Group Dates MEDICARE MEDICARE A [id number] 2018-Pres [address] [place] [address] BLUE CROSS BCBS [employer] [id number] 2019-Pres [phone] PO HAMIDA X Cost Share BLUE SHIELD BLUE COST ent [phone] SHARE OSMANI SILVEIRA [id number]
--- OUTSIDE RECORDS SUMMARY | 2022-05-28 13:30 | XMS_ITS | Encounter Summary ---
:1955 Author Organization [facility] Address [address] [place] [address] Care Team Providers Name Role Phone Unavailable Primary Care Provider Unavailable Encounter Details Date Type Department Care Team Description 05/25/2018 Clinical Communication Department of Pedro Emmanuel, [facility] [place] [address] [place] [phone] Social History Tobacco Use Types Packs/Day Years [...] or relatives? How often do you attend adventism or 1 to 4 times per year 09/23 orthodox services? Do you belong to any clubs or No 10/10/2021 organizations such as adventism groups, unions, fraternal or athletic groups, or [...] at Date Recorded Female 08/28/2021 7:35 PM MEDIA SUPERVISOR documented as of this encounter Miscellaneous Notes Telephone Encounter - Evette Peguero R.N. - 05/30/2018 4:40 PM CST Spoke with Dr. Emmanuel and he would like to see patient at her appointment on 06/14/18 before any blood work is drawn. If he determines at her appointment that she still needs blood work he will have it done here in [facility] at that time. Call placed to patient and she was informed of the above. A SUPERVISOR Telephone Encounter - Lilly Rider - 05/25/2018 11:38 AM CDT Patient is wondering if the blood work that is normally done at the appointment can be sent to [facility] so it can be done beforehand. Please reach out to the patient at [phone]. Thank you! documented in this encounter Plan of Treatment Not on filedocumented as of this encounter Visit Diagnoses Not on filedocumented in this encounter
--- OUTSIDE RECORDS SUMMARY | 2022-05-28 13:30 | XMS_ITS | Encounter Summary ---
:1955 Author Organization [facility] Address [address] [place] [address] Care Team Providers Name Role Phone Unavailable Primary Care Provider Unavailable Encounter Details Date Type Department Care Team Description 10/14/2021 Hospital Encounter Department of Brooke Boothe Sprue Celiac ([facility]) Laboratory Medicine M.DSydney, Ph.D. and Pathology, [address] in [place], [place] [address] [place] [address] [place], [place] (Work) [phone] Social History Tobacco Use Types Packs/Day Years [...] or relatives? How often do you attend restorationist or 1 to 4 times per year 09/23 orthodoxy services? Do you belong to any clubs or No 10/10/2021 organizations such as restorationist groups, unions, fraternal or athletic groups, or [...] place to sleep or slept in a senior living (including now)? Education Answer Date Recorded What is the highest level of school Associate degree: gauravbita brand, 08/29/2021 you have completed or the highest technical, or vocational p josette degree you have received? 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 Transglutaminase Ab, (Negative 6:42 PM CDT IgA, S ) U/mL Specimen Anatomical Collection Method Collection Time Receive d Time (Source) Location / / Volume Laterality Blood (Blood, 10/14/2021 9:58 AM 10/15/19 2:30 Venous) CDT PM CDT Brooke Boothe M.D., Ph.D. LAB BLOOD ADD-ON Performing Organization Address City/State/ZIP Code Phon e Number [facility] [address] [place] [address] C[facility] [place] [address] Laboratory Medicine and Pathology [address] ARMSTRONG documented in this encounter Visit Diagnoses Diagnosis Sprue Celiac documented in this encounter
--- OUTSIDE RECORDS SUMMARY | 2022-05-28 13:30 | XMS_ITS | Encounter Summary ---
:1955 Author Organization [facility] Address [address] [place] [address] Care Team Providers Name Role Phone Unavailable Primary Care Provider Unavailable Encounter Details Date Type Department Care Team Description 06/05/2021 Orders Only [facility] PCP TH Sa tyler Gomes M.D. [address] [place], [place] [phone] (Wo rk) Social History [...] or relatives? How often do you attend taoist or 1 to 4 times per year 09/23 cheondoism services? Do you belong to any clubs or No 10/10/2021 organizations such as taoist groups, unions, fraternal or athletic groups, or [...] or slept in a [facility] (including now)? 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
--- OUTSIDE RECORDS SUMMARY | 2022-05-28 13:30 | XMS_ITS | Encounter Summary ---
:1955 Author Organization [facility] Address [address] [place] [address] Care Team Providers Name Role Phone Unavailable [...] or relatives? How often do you attend rastafari or 1 to 4 times per year 09/23 hindu services? Do you belong to any clubs or No 10/10/2021 organizations such as rastafari groups, unions, fraternal or athletic groups, or [...] or slept in a [facility] (including now)? 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
--- OUTSIDE RECORDS SUMMARY | 2022-05-28 13:30 | XMS_ITS | Encounter Summary ---
:1955 Author Organization [facility] Address [address] [place] [address] Care Team Providers Name Role Phone Unavailable Primary Care Provider Unavailable Reason for Visit Reason Comments Skin Problem recheck DH Appointment Request (Routine) - Closed Specialty Diagnoses / Procedures Referred By Contact Refer red To Contact Family Medicine Referral ID Status Reason Start Date Expiration Date Visits Requ ested Visits Authorized [id number] Closed 04/05/2018 04/05/2019 1 Encounter Details Date Type Department Care Team Description 06/14/2018 Office Visit Department of Pedro Emmanuel Dermatitis He rpetiformis Dermatology in [place] M.D. (Primary Dx) [place], [place] [address] [phone] Social History Tobacco Use Types Packs/Day Years [...] 1 to 4 times per year 09/23 sabianism services? Do you belong to any clubs [...] to sleep or slept in a senior care (including now)? Sex Assigned at Date Recorded Female 08/28/2021 7:35 PM MANAGER PHILOSOPHY documented as of this encounter Progress Notes Pedro Emmanuel M.D. - 06/14/2018 3:15 PM CST CHIEF COMPLAINT Recheck dermatitis herpetiformis HISTORY OF THE PRESENT ILLNESS Gloria Tracy is a pleasant 63 y.o. female who follows up for recheck dermatitis herpetiformis. I last saw her on 11/08/17 at the [facility] and she was supposed to return in [...] by Dr. Bravo, a GI specialist at [facility], who recommended a strict gluten free diet. GI endoscopy done at [facility] in November 2016 showed changes compatible with [...] Signed: mara Magaña. 06/14/2018. 3:29 PM . IPedro M.D., personally performed the services described in this documentation. All medical record entries made by the scribe were at my direction and in my presence. I have reviewed the chart and discharge instructions (if applicable) and agree that the record reflects my personal performance and is accurate and complete. Pedro Emmanuel M.D. . 06/14/2018. 4:36 PM. GER PHILOSOPHY documented in this encounter Plan of Treatment Not on filedocumented as of this encounter Procedures Procedure Name Priority Date/Time Associated Diagnosis Comme nts CELIAC DISEASE SEROLOGY Routine 06/14/2018 4:10 Dermatitis R esults for this CASCADE, S PM MANAGER PHILOSOPHY Herpetiformis procedure are in the results section. TISSUE TRANSGLUTAMINASE Routine 06/14/2018 4:10 R esults for this (TTG) AB, IGA, S PM MANAGER PHILOSOPHY procedure a re in the results section. documented in this encounter Results tTG (Tissue Transglutaminase), Antibody, IgA (06/14/2018 4:10 PM MANAGER PHILOSOPHY) [facility] Method Time Signature Tissue 1.6 <4.0 06/15/2018 [facility] Transglutaminase Ab, (Negative 3:20 PM MANAGER PHILOSOPHY LABORAT ORIES - IgA, S ) U/mL [facility] Specimen Anatomical Collection Method Collection Time Receive d Time (Source) Location / / Volume Laterality Blood 06/14/2018 4:10 PM 8 3:20 MANAGER PHILOSOPHY PM MANAGER PHILOSOPHY Pedro Emmanuel M.D. LAB BLOOD ADD-ON Performing Organization Address [facility] Code Phon e Number [facility] LABORATORIES - [address] Celiac Disease Serology [place] (06/14/2018 4:10 PM MANAGER PHILOSOPHY) Component Value Ref Test Analysis Performed At [facility] Range Method Time Signature Immunoglobulin A 193 61 - 06/15/2018 [facility] (IgA), S 356 9:44 AM LABORATORIES - mg/dL MANAGER PHILOSOPHY [facility] Celiac Disease Negative serology. Celiac di sease unlikely. However, approximately 10% of 06/15/2018 [facility] Interpretation patients with celiac disease are seronegative. Also, patients who are already 9:43 PM LABORATORIES - adhering to a gluten-free diet may be seronegative. If heber iac disease is [facility] highly clinically suspected, consider HLA-DQ typing. CAMPUS Specimen Anatomical Collection Method Collection Time Receive d Time (Source) Location / / Volume Laterality Blood (Blood, 06/14/2018 4:10 PM 06/15/20 18 6:23 Venous) MANAGER PHILOSOPHY AM MANAGER PHILOSOPHY Pedro Emmanuel M.D. LAB BLOOD ADD-ON Performing Organization Address City/[facility] Code Phon e Number [facility] LABORATORIES - [address] documented in this encounter Visit Diagnoses Diagnosis Dermatitis Herpetiformis - Primary documented in this encounter
--- OUTSIDE RECORDS SUMMARY | 2022-05-28 13:30 | XMS_ITS | Encounter Summary ---
:1955 Author Organization [facility] Address [address] [place] [address] Care Team Providers Name Role Phone Unavailable Primary Care Provider Unavailable Reason for Referral Outpatient (Routine) - Closed Specialty Diagnoses / Procedures Referred By Contact Refer red To Contact Diagnoses Osteoporosis Brooke Boothe M.D., Ph.D. [facility] Procedures DX Lumbar Spine 2-3 Views [address] [place] [address] Referral ID Status Reason Start Date Expiration Date Visits Requ ested Visits Authorized [id number] Closed 10/14/2021 10/14/2022 1 1 Outpatient (Routine) - Closed Specialty Diagnoses / Procedures Referred By Contact Refer red To Contact Diagnoses Osteoporosis Brooke Boothe M.D., Ph.D. [facility] Procedures DX Thoracic Spine 2 Views [address] [place], [place] [phone] Referral ID Status Reason Start Date Expiration Date Visits Requ ested Visits Authorized [id number] Closed 10/14/2021 10/14/2022 1 1 Specialty Diagnoses / Procedures Referred By Contact Refer red To Contact Brooke Boothe M.D., Ph.D. [facility] [address] [place], [place] [phone] Referral ID Status Reason Start Date Expiration Date Visits Requ ested Visits Authorized Reason for Visit Outpatient (Routine) - Closed Specialty Diagnoses / Procedures Referred By Contact Refer red To Contact Endocrinology Diagnoses Osteoporosis Lilly Bhatt M.D. [address] [address] Referral ID Status Reason Start Date Expiration Date Visits Requ ested Visits Authorized [id number] Closed 08/12/2021 08/12/2022 1 1 Encounter Details Date Type Department Care Team Description 10/14/2021 Comprehensive Visit Division of Brooke Boothe [facility] ([facility]) (Primary Dx); Endocrinology prabhakar Camarena M.D., [place], [place] Ph.D. [address] [facility] [address] [facility] [address] [facility] [phone] [place] [address] Social History Tobacco Use Types Packs/Day [...] or relatives? How often do you attend synagogue or 1 to 4 times per year 09/23 yarsani services? Do you belong to any clubs or No 10/10/2021 organizations such as synagogue groups, unions, fraternal or athletic groups, or [...] or slept in a detention (including now)? Education Answer Date Recorded What is the highest level of school Associate degree: damien [employer], 08/29/2021 you have completed or the highest technical, or vocational p josette degree you have received? Sex Assigned at Date Recorded Female 08/28/2021 7:35 PM BRIM IRONER HAND documented as of this encounter Last Filed [...] BMD LS T-score -3.4 (hologic DXA in [place]) Fractures None Treatment ERT quit 2016 Alendronate [...] due to her local center [facility]. Discussed overall plan for diet exercise and [...] Name Type Priority Associated Diagnoses Order S [facility] Outpatient Referral Routine Osteoporosis Expect [...] Transglutaminase), Antibody, IgA (10/14/2021 9:58 AM CDT) [facility] Method Time Signature Tissue 1.4 <4.0 10/14/2021 [facility] Transglutaminase Ab, (Negative 6:42 PM CDT IgA, S ) U/mL Specimen Anatomical Collection Method Collection Time Receive d Time (Source) Location / / Volume Laterality Blood (Blood, 10/14/2021 9:58 AM 10/15/19 2:30 Venous) CDT PM CDT Brooke Boothe M.D., Ph.D. LAB BLOOD ADD-ON Performing Organization Address City/State/ZIP Code Phon e Number [facility] [address] [place] [address] SUPPORT CENTER [facility] [place] [address] Laboratory Medicine and Pathology [address] [place] documented in this encounter Visit Diagnoses Diagnosis Sprue Celiac - Primary Osteoporosis Osteoporosis documented in this encounter
--- OUTSIDE RECORDS SUMMARY | 2022-05-28 13:30 | XMS_ITS | Encounter Summary ---
:1955 Author Organization [facility] Address [address] [place] [address] Care Team Providers Name Role Phone Unavailable Primary Care Provider Unavailable Reason for Referral Outpatient (Routine) - Closed Specialty Diagnoses / Procedures Referred By Contact Refer red To Contact Endocrinology Diagnoses Osteoporosis Lilly Bhatt M.D. [facility] [address] [place] [address] Referral ID Status Reason Start Date Expiration Date Visits Requ ested Visits Authorized [id number] Closed 08/12/2021 08/12/2022 1 1 MS COORDINATOR Encounter Details Date Type Department Care Team Description 08/12/2021 [facility] Lilly Bhatt Osteoporosis AND SANDRA Camarena M.D. (Primary Dx) [address] [phone] Social History Tobacco Use Types Packs/Day Years [...] or relatives? How often do you attend scientology or 1 to 4 times per year 09/23 adventism services? Do you belong to any clubs or No 10/10/2021 organizations such as scientology groups, unions, fraternal or athletic groups, or [...] place to sleep or slept in a care home (including now)? Sex Assigned at Date Recorded Female 08/28/2021 7:35 PM CLAIMS COORDINATOR documented as of this encounter Plan of Treatment Scheduled Referrals Name Type Priority Associated Diagnoses Order S [facility] Endocrinology Referral Outpatient Routine Osteoporosis Expec mirta: Referral 08/12/2021 (Approximate), Expires: 11/10/2022 documented as of this encounter Visit Diagnoses Diagnosis Osteoporosis - Primary documented in this encounter
--- NOTE | 2022-05-28 13:40 | CRLHL7_ITS ---
For Patients: As a result of the Century Cures Act, medical imaging exams and procedure reports are released immediately into your electronic medical record. You may view this report before your referring provider. If you have questions, please contact your health care provider. BILATERAL SCREENING MAMMOGRAM WITH COMPUTER-AIDED DETECTION AND TOMOSYNTHESIS TECHNIQUE: CC and MLO views were obtained. These mammographic images have been obtained using full-field digital technique. These mammographic images were interpreted with the benefit of computer-aided detection. Breast Tomosynthesis was used in this interpretation. COMPARISON FILM: 04/01/21, 06/09/19, 02/18/18. FINDINGS: The breasts are heterogeneously dense, which may obscure small masses IMPRESSION: There is no radiographic evidence for malignancy. ASSESSMENT: BI-RADS Category 1: Negative RECOMMENDATION: Routine screening mammogram in 1 year. A lay language report of this examination will be provided to the patient. David Cavazos M.D. Diagnostic Radiologist [email or web address] Transcribed: 2:46 p.m. ANTHONY/Dictated by: David Cavazos MD @ 05/29/2022 8:24:00 AM (Electronically Signed)
== END 2022-05-28 13:26 | disposition home or self-care (01) ==
PROVIDERS: PCP Internal Medicine; Visit Provider Internal Medicine
DX: Z12.31 Encounter for screening mammogram for malignant neoplasm of breast (principal); R92.2 Inconclusive mammogram
CPT/HCPCS: 77063; 77067

== ENCOUNTER 2022-11-19 11:50 | Outpatient (CLI) | payer MEDICARE, BC, SELFPAY | END 2022-11-19 11:51 | disposition home or self-care (01) | LOC: NFLDREF 11-24 09:12 | PROVIDERS: PCP Internal Medicine; Referring Provider Internal Medicine; Visit Provider Internal Medicine | DX: M81.0 Age-related osteoporosis without current pathological fracture (principal) | CPT/HCPCS: 82310; 82565 ==

== ENCOUNTER 2022-12-02 12:59 | Outpatient (RCR) | payer MEDICARE, BC, SELFPAY ==
--- NOTE | 2022-11-25 10:45 | URNOTE ---
Request received for authorization for Reclast (Zoledronic Acid) ([id number]). Prior authorization is not required as services are based on medical necessity and follow Medicare guidelines.
[2022-12-02 13:19] VITALS: BP 124/77; PULSE 77; RESP 16; TEMP 36.4; O2SAT 98
== END 2023-05-31 23:59 | disposition home or self-care (01) ==
LOC: CCIC 12:59
PROVIDERS: PCP Internal Medicine; Referring Provider Internal Medicine; Visit Provider Internal Medicine
DX: M81.0 Age-related osteoporosis without current pathological fracture (principal)
CPT/HCPCS: 96374; J3489

== ENCOUNTER 2023-04-09 08:08 | Outpatient (CLI) | payer MEDICARE, BC, SELFPAY | END 2023-04-09 08:09 | disposition home or self-care (01) | LOC: NFLDREF 04-13 09:19 | PROVIDERS: PCP Internal Medicine; Referring Provider Internal Medicine; Visit Provider Internal Medicine | DX: Z00.00 Encounter for general adult medical examination without abnormal findings (principal); M81.0 Age-related osteoporosis without current pathological fracture; Z90.5 Acquired absence of kidney; Z85.528 Personal history of other malignant neoplasm of kidney | CPT/HCPCS: 80048; 82043; 82306; 82570; 87086 ==

== ENCOUNTER 2023-08-05 11:10 | Outpatient (CLI) | payer MEDICARE, BC, SELFPAY ==
--- OUTSIDE RECORDS SUMMARY | 2023-08-05 11:21 | XMS_ITS | Clinical Summary ---
Author Name Unknown Organization [facility] Address [place], [place] [address] Care Team Providers Care Central Office Operator Name Role Phone Unavailable Primary Care Provider Unavailabl e Allergies No known active allergies Medications Medication Sig Dispensed Refills Start Date End Date Status dapsone 25 mg tabletIndications:Derm atitis herpetiformis TAKE 2 TABLETS BY MOUTH ON EVEN DAYS AND 1 TABLET BY MOUTH ON ODD DAYS. 60 tablet 0 08/11/2016 Active estradiol (ESTRACE) 0.5 mg tabletIndications:Post menopausal HRT (hormone replacement therapy) TAKE ONE AND ONE-HALF TABLET BY MOUTH EVERY DAY 135 tablet 0 12/09/2016 Active Active Problems Problem Noted Date Diagnosed Date Dermatitis herpetiformis 10/02/2015 Osteopenia 04/24/2014 Overview: dexa 2012. Repeat 3-5 years. Jelly Cobb M.D. 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 Arthritis Mother Other Mother migraines Cancer-colon No Family History Relation Name Status Comments Father Maternal Grandmother Mother Social History Tobacco Use Types Packs/Day Years Used Date Smoking Tobacco: Never Smokeless Tobacco: Never Tobacco Cessation:Counseling Given: Yes Alcohol Use Standard Drinks/Week Comments Yes 5 (1 standard drink = 0.6 oz pur e alcohol) Sex and Gender Information Value Date Recorded Sex Assigned at Not on file Gender Identity Not on file Sexual Orientation Not on file Obstetrics History Para Term AB IAB SAB Ectopic Multiple Livin g Live Births 3 3 3 Date Outcome GA Total Labor Labor/2nd/3rd Weight Sex Delivery Anes PTL Piedad A1 A5 Name Cl in Para Para Para Last Filed Vital Signs Vital Sign Reading Time Taken Comments Blood Pressure 127/81 02/04/2016 7:54 AM CDT Pulse 67 02/04/2016 7:54 AM CDT Temperature 36.8 ??C (98.3 ??F) 02/04/2016 7:54 AM CD T Respiratory Rate - - Oxygen Saturation 95% [...] 73 1998 Zoster (shingles) series for age 50+ (1 of 2) 2003 Depression screening for age 12+ 08/21/2016 08/21/19 16 Mammogram for age 45-75 08/21/2016 08/21/19 16, 04/24/2014, 12/07/2012, Additional history exists BMI (ht and wt on same day) for age 18+ 02/03/2017 02/04/2016, 10/02/2015, 08/21/2015 DEXA/DXA scan for age 65+ 04/10/20182011, 11/01/2009, 12/21/2006 Pneumococcal series for age 65+ (1 of 1 - PCV) 2018 Tetanus booster 07/02/2020 07/02/2010 Lipids for age 45-75 08/22/2020 08/22/2015, 07/23/2010, 12/14/2006 Influenza for age 65+ 03/26/2023 08/21/2015 , 04/24/2014, 04/20/2013 Tdap Completed 07/02/2010 Hepatitis C screening for ag e 18-79 Completed 04/24/2014 [place] [address]
--- OUTSIDE RECORDS SUMMARY | 2023-08-05 11:21 | XMS_ITS | Referral Summary ---
Author Name Unknown Organization [facility] Address [address] [place] [address] Care Team Providers Care Automobile Locator Name Role Phone Unavailable Primary Care Provider Unavailabl e Source Comments Patient records contain information from all sites at [facility]. For routine questions regarding patient records, call [phone] during business hours, M-F 8:00 AM - 5:00 PM Central Time. Record requests for emergency care only can be directed to [phone] at any time.[facility] Allergies No known active allergies Medications Medication Sig Dispensed Refills Start Date End Date Status melatonin 5 mg tablet Take 5 mg by mouth. 0 Active calcium carbonate-vitamin D3 1,500 mg (600 mg calcium)-5 mcg (200 Unit) per tablet Take 1 tablet by mouth daily with breakfast. 0 Active Active Problems Problem Noted Date Diagnosed Date Osteoporosis 10/14/2021 Overview: 2020 BMD LS T-score -3.4 (hologic DXA in [place]) Fractures None Treatment ERT quit 2016 Alendronate 70 mg weekly 03/2017-07/2017 stopped due to aching hips Reclast 5 mg yearly 09/2021, anticipate 3 years then assess for possible holiday Additional history Celiac disease No tobacco or etoh abuse. No parental hip fracture. Sprue Celiac 01/04/2017 Social History Tobacco Use Types Packs/Day Years Used Date Smoking Tobacco: Never Smokeless Tobacco: Never Humiliation, Afraid, Rape, and Kick questionnair e Answer Date Recorded Within the last year, have y ou been afraid of your partner or ex-partner? No 10/10/2021 Within the last year, have y ou been humiliated or emotionally abused in other ways by your partner or ex-partner? No Within the last year, have y ou been kicked, hit, slapped, or otherwise physically hurt by your partner or ex-partner? No 10/10/2021 Within the last year, have y ou been raped or forced to have any kind of sexual activity by your partner or ex-partner? No 10/10/2021 Social Connection and Isolat ion Panel [NHANES] Answer Date Recorded In a typical week, how many times do you talk on the phone with family, friends, or neighbors? More than three times a week 10/10/2021 How often do you get togethe r with friends or relatives? Three times a week 10/10/2021 How often do you attend [facility] or voodoo services? 1 to 4 times per year 10/10/2021 Do you belong to any clubs o r organizations such as catholic groups, unions, fraternal or athletic groups, or school groups? No 10/10/2021 How often do you attend meet ings of the clubs or organizations you belong to? Never 10/10/2021 Are you , , di vorced, , never , or living with a partner? 10/10/2021 AUDIT-C Answer Date Recorded Q1: How often do you have a drink containing alc ohol? 2-4 times a month 10/10/2021 Q2: How many drinks containi ng alcohol do you have on a typical day when you are drinking? 1 or 2 10/10/2021 Q3: How often do you have si x or more drinks on one occasion? Never 10/10/2021 Overall Financial Resource Strain (CARDIA) Answe r Date Recorded How hard is it for you to pa y for the very basics like food, housing, medical care, and heating? Not hard at all 10/10/2021 [facility] [place] of Occupat ional Health - Occupational Stress Questionnaire Answer Date Recorded Do you feel stress - tense, restless, nervous, or anxious, or unable to sleep at night because your mind is troubled all the time - these days? Only a little 10/10/2021 Exercise Vital Sign Answer Date Recorde d On average, how many days pe r week do you engage in moderate to strenuous exercise (like a brisk walk)? 4 days 10/10/2021 On average, how many minutes do you engage in exercise at this level? 50 min 10/10/2021 Hunger Vital Sign Answer Date Recorded Within the past 12 months, y ou worried that your food would run out before you got the money to buy more. Never true 10/11/19 Within the past 12 months, t he food you bought just didn't last and you didn't have money to get more. Never true 10/10/2021 PRAPARE - Transportation Answer Date Re corded In the past 12 months, has l ack of transportation kept you from medical appointments or from getting medications? No 09/23 In the past 12 months, has l ack of transportation kept you from meetings, work, or from getting things needed for daily living? No 10/10/2021 Housing Stability Vital Sign Answer Дмитрий e Recorded In the last 12 months, was t here a time when you were not able to pay the mortgage or rent on time? No 10/10/2021 In the last 12 months, how many places have you lived? 1 10/10/2021 In the last 12 months, was t here a time when you did not have a steady place to sleep or slept in a alf (including now)? No 10/10/2021 Nutrition Answer Date Recorded Nutrition: EVOO Fat Source Yes 10/10 On average, how many serving s of fruits and vegetables do you eat per day (serving size is equal to 1 cup or approximately the size of a tennis ball)? 2-3 10/10/2021 Dental Answer Date Recorded Dental: Regular Dentist Yes 08/29/19 Employment Answer Date Recorded Employment status Retired 10/10/2021 Education Answer Date Recorded What is the highest level of school you have completed or the highest degree you have received? Associate degree: occupational, technical, or vocational program 08/29/2021 Sex and Gender Information Value Date Recorded Sex Assigned at Female 08/28/2021 7:35 PM MULT AU MATIC OPERATOR Gender Identity Female 08/28/2021 7:35 PM MULT AU MATIC OPERATOR Sexual Orientation Straight 08/28/2021 7: 35 PM MULT AU MATIC OPERATOR Last Filed Vital Signs Vital Sign Reading Time Taken Comments Blood Pressure 139/74 10/17/2021 9:02 AM CDT Pulse 76 10/17/2021 9:02 AM CDT Temperature 36.4 ??C (97.5 ??F) 10/17/2021 9:02 AM CD T Respiratory Rate 18 10/17/2021 9:02 AM CDT Oxygen Saturation 99% 10/17/2021 9:02 AM CDT Inhaled Oxygen Concentration - - Weight 55.6 kg (122 lb 9.2 oz) 10/14/2021 8:45 A M CDT Height 159.1 cm (5' 2.64) 10/14/2021 8:45 AM CD T Body Mass Index 21.96 10/14/2021 8:45 AM CDT Plan of Treatment Not on file Medical Devices Implanted Type Area Manager Retirement Device Identifier Shelf Expiration Date Model / Serial / Lot Conversions - Default Historical Implant Device Implanted:2016 (Quantity not on file) Misc Other Description:Device Status Te xt - MiscOther. [facility]. [facility] [employer]SM[employer] Bravo [id number]
--- OUTSIDE RECORDS SUMMARY | 2023-08-05 11:21 | XMS_ITS | Clinical Summary ---
Author Name Unknown Organization [facility] Address [address] [place] [address] Care Team Providers Care Chefs Name Role Phone Unavailable Primary Care Provider Unavailabl e Source Comments Patient records contain information from all sites at [facility]. For routine questions regarding patient records, call [phone] during business hours, M-F 8:00 AM - 5:00 PM Central Time. Record requests for emergency care only can be directed to [phone] at any time.[facility] Allergies No known active allergies Medications Medication [...] BMD LS T-score -3.4 (hologic DXA in [place]) Fractures None Treatment ERT quit 2016 Alendronate [...] week 10/10/2021 How often do you attend [facility] or oriental orthodox services? 1 to 4 times per year 10/10/2021 Do you belong to any clubs o r organizations such as synagogue groups, unions, fraternal [...] and heating? Not hard at all 10/10/2021 [facility] of Occupat ional Health - Occupational Stress [...] place to sleep or slept in a chcf (including now)? No 10/10/2021 Nutrition Answer Date [...] Sex Assigned at Female 08/28/2021 7:35 PM SAS DEVELOPER ANALYST Gender Identity Female 08/28/2021 7:35 PM SAS DEVELOPER ANALYST Sexual Orientation Straight 08/28/2021 7: 35 PM SAS DEVELOPER ANALYST Last Filed Vital Signs Vital Sign Reading [...] Date Last Done Comments CT Colonography 1955 Colonoscopy 1955 FIT 1955 Fasting Glucose for Diabetes Screening 1955 Hepatitis C Screening 1955 Zoster Vaccines (1 of 2) 2003 Mammogram 12/24/2016 12/25/2015 (Perf ormed elsewhere) Depression Screening (Annual PHQ-2) 07/26/2022 Fall Risk Screen (Annual) 07/26/2022 COVID-19 Vaccine (5 - 2022-2 4 season) 2023 04/27/2022, 06/05/2021, 10/25/2020, Additional history exists Influenza Vaccine (#1) 2023 2, 05/27/2021, 06/04/2020, Additional history exists Cologuard 04/03/2024 04/03/2021 Colorectal Cancer Screening 04/03/2024 DTaP,Tdap,and Td Vaccines (4 - Td or Tdap) 03/17/2031 03/17/2021, 07/02/2010, 10/22/1999 Pneumococcal vaccine (65+ years) Completed 03/17/20, 06/05/2019 Medical Devices Implanted Type Area Special Education Superintendent Device Identifier Shelf Expiration Date Model / Serial / Lot Conversions - Default Historical Implant Device Implanted:2016 (Quantity not on file) Misc Other Description:Device Status Te xt - MiscOther. surgical clip. OSMANI Bravo [id number]
--- OUTSIDE RECORDS SUMMARY | 2023-08-05 11:21 | XMS_ITS ---
Author Name Unknown Organization [facility] Address [address] [place] [address] Care Team Providers Care Nuclear Medicine Medical Director Name Role Phone Unavailable Unavailable Unavailable Surgery Details Not on file Complications Check Surgery Details section. Procedure Estimated Blood Loss Check Surgery Details section. Procedure Findings Check Surgery Details section. Procedure Specimens Taken Check Surgery Details section.
--- NOTE | 2023-08-05 11:30 | CRLHL7_ITS ---
For Patients: As a result of the Cures Act, medical imaging exams and procedure reports are released immediately into your electronic medical record. You may view this report before your referring provider. If you have questions, please contact your health care provider. BILATERAL SCREENING MAMMOGRAM WITH COMPUTER-AIDED DETECTION AND TOMOSYNTHESIS TECHNIQUE: CC and MLO views were obtained. These mammographic images have been obtained using full-field digital technique. These mammographic images were interpreted with the benefit of computer-aided detection. Breast Tomosynthesis was used in this interpretation. COMPARISON FILM: 05/28/22, 04/01/21, 06/09/19. FINDINGS: The breasts are heterogeneously dense, which may obscure small masses IMPRESSION: There is no radiographic evidence for malignancy. ASSESSMENT: BI-RADS Category 1: Negative RECOMMENDATION: Routine screening mammogram in 1 year. A lay language report of this examination will be provided to the patient. TERENCE RUIZ M.D. Diagnostic/Nuclear Medicine Radiologist [email or web address] MARINA:[email or web address] Transcribed: 3:09 p.mSydney campbell/Dictated by: Terence Ruiz MD @ 08/05/2023 11:58:00 AM (Electronically Signed)
== END 2023-08-05 11:11 | disposition home or self-care (01) ==
LOC: MAMMO 11:11
PROVIDERS: PCP Internal Medicine; Visit Provider Internal Medicine
DX: Z12.31 Encounter for screening mammogram for malignant neoplasm of breast (principal); R92.2 Inconclusive mammogram
CPT/HCPCS: 77063; 77067

== ENCOUNTER 2024-04-14 08:30 | Outpatient (CLI) | payer MEDICARE, BC, SELFPAY ==
--- OUTSIDE RECORDS SUMMARY | 2024-04-16 02:46 | XMS_ITS | Clinical Summary ---
Author Organization [facility] Address [place], [place] [address] Care Team Providers Care Tape Keller Operator Name Role Phone Unavailable Primary Care Provider Unavailabl e Allergies No known active allergies Medications Medication Sig Dispensed Refills Start Date End Date Status dapsone 25 mg tabletIndications:Derm atitis herpetiformis TAKE 2 TABLETS BY MOUTH ON EVEN DAYS AND 1 TABLET BY MOUTH ON ODD DAYS. 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 Repeat 3-5 years. Jelly Cobb M.D. 04/24/2014 9:26 AM Allergic rhinitis, cause unspecified 12/14/2006 dupuytren's contracture right 5th finger 007 renal cell carcinoma 12/14/2006 Overview (12/14/2006): renal cell carcinoma, clear cell type, jorden [...] Outcome GA Total Labor Labor/2nd/3rd Weight Sex Type Anes PTL Piedad A1 A5 Name Clin Para Para Para Last Filed Vital Signs [...] Health Maintenance Due Date Last Done Comments Colonoscopy through age 75 1998 Zoster (shingles) [...] for age 45-75 08/22/2020 08/22/2015, 07/23/2010, 12/14/2006 COVID-19 vaccine series (1 - 2022- season) 2024 Influenza for age 65+ 03/26/2024 08/21/2015 , 04/24/2014, 04/20/2013 Tdap Completed 07/02/2010 Hepatitis C screening for ag e 18-79 Completed 04/24/2014 Procedures Procedure Name Priority Date/Time Associated Diagnosis Comments LIPID PANEL W REFLEX MEASURED LDL Routine 08/22/2015 8:01 AM ORAL PATHOLOGIST Encounter for screening for lipid disorder XR MAMMO BILAT SCREEN FFDM (IA) Routine 08/21/2015 1:15 PM ORAL PATHOLOGIST Visit for screening mammogram ANTI HCV Routine 04/24/2014 10:00 AM CDT Need for hepatitis C screening test XR DXA BONE DENSITY 2 SITES AXIAL Routine 09/29/2011 4:34 PM ORAL PATHOLOGIST osteopenia from Last 3 Months or Most Recently Relevant to Health Maintenance Results * (ABNORMAL) LIPID PANEL W REFLEX MEASURED LDL ([id number]) (08/22/2015 8:01 AM ORAL PATHOLOGIST) CHOLESTEROL,TOTAL 228(H) 100 - 199 mg/dL 08/22/2015 8:49 AM ORAL PATHOLOGIST [facility] TRIGLYCERIDES 134 <150 mg/dL 08/22/2015 8:49 AM ORAL PATHOLOGIST [facility] HDL CHOLESTEROL 63 >40 mg/dL 08/22/2015 8:49 AM ORAL PATHOLOGIST [facility] NON-HDL CHOLESTEROL 165(H) <145 mg/dl 08/22/2015 8:49 AM [facility] CHOL/HDL RATIO 3.62 <4.50 08/22/2015 8:49 AM [facility] LDL CHOLESTEROL 138(H) <=130 mg/dL 08/22/2015 8:49 AM [facility] PATIENT STATUS FASTING 08/22/2015 8:49 AM ORAL PATHOLOGIST [facility] Blood specimen (specimen) BLOOD SPECIMEN / Unknown Venipuncture / Unknown 08/22/2015 8:01 AM ORAL PATHOLOGIST 08/22/2015 8:01 AM ORAL PATHOLOGIST Corina Calle MD CHEMISTRY [facility] [address] [place] [address], * XR MAMMO BILAT SCREEN FFDM (08/21/2015 1:15 PM ORAL PATHOLOGIST) Anatomical Region Laterality Modality BREASTS, Breast Left, Breast Right Bilateral Mammography Impressions 08/22/2015 12:40 PM ORAL PATHOLOGIST ??There is no radiographic evidence for malignancy. ??Recommend annual mammograms. A lay language report of this examination will be provided to the patient. MAMMOGRAM ASSESSMENT: ??ACR 2 Benign Narrative 08/22/2015 12:40 PM ORAL PATHOLOGIST XR MAMMO BILAT SCREEN FFDM [G0202.0] CLINICAL HISTORY: ??This is an asymptomatic 60 y.o. patient. INDICATION FOR EXAM: Mammogram Screening. TECHNIQUE: CC & MLO views were obtained. ??This digital study was evaluated with the assistance of Computer-Aided Detection. COMPARISON FILMS: Yes 04/24/14 [facility] 12/07/12 [facility] FINDINGS: ??Mammographically, the breast tissue is extremely dense. ??This may lower the sensitivity of mammography. ??No suspicious masses or microcalcifications. ??Benign appearing calcifications within both breasts. Corina Calle MD MAMMO * ANTI HCV [[id number]] (04/24/2014 10:00 AM CDT) HEPATITIS C ANTIBODY Non-Reacti ve Non-Reacti ve 04/24/2014 5:40 PM CDT [facility] Blood specimen (specimen) BLOOD SPECIMEN / Unknown Venipuncture / Unknown 04/24/2014 10:00 AM CDT 04/24/2014 10:00 AM CDT Narrative [facility] - 04/24/2014 5:40 PM CDT Antibodies to HCV not detected; does not exclude the possibility of exposure to HCV. Jelly Cobb SEND OUTS [facility] [address] [place] [address], [place] * XR DEXA BONE DENSITY 2 SITES (09/29/2011 4:34 PM ORAL PATHOLOGIST) Anatomical Region Laterality Modality Spine, HIPS, HIPL, HIPR Other Narrative 10/02/2011 7:54 AM ORAL PATHOLOGIST Please see scanned document for results of this study. Procedure Note Rosa Rod PA - 10/02/2011 Please see scanned document for results of this study. Jelly Cobb DEXA from Last 3 Months or Most Recently Relevant to Health Maintenance [place]IANG [id number]
== END 2024-04-14 08:31 | disposition home or self-care (01) ==
LOC: NFLDREF 04-16 02:45
PROVIDERS: PCP Internal Medicine; Referring Provider Internal Medicine; Visit Provider Internal Medicine
DX: M81.0 Age-related osteoporosis without current pathological fracture (principal); R03.0 Elevated blood-pressure reading, without diagnosis of hypertension; Z90.5 Acquired absence of kidney; Z13.6 Encounter for screening for cardiovascular disorders; M54.50 Low back pain, unspecified; R82.90 Unspecified abnormal findings in urine
CPT/HCPCS: 80048; 80061; 82043; 82306; 82570; 87086

== ENCOUNTER 2024-05-16 15:01 | Outpatient (CLI) | payer MEDICARE, BC, SELFPAY ==
--- OUTSIDE RECORDS SUMMARY | 2024-05-16 15:04 | XMS_ITS | Clinical Summary ---
Author Organization [facility] Address [place], [place] [address] Care Team Providers Care Powerhouse Laborer Name Role Phone Unavailable Primary Care Provider [...] 07/23/2010, 12/14/2006 COVID-19 vaccine series (1 - 2023- season) 2024 Influenza for age 65+ 03/26/2024 08/21/2015 , 04/24/2014, 04/20/2013 Tdap Completed 07/02/2010 Hepatitis C screening for ag e 18-79 Completed 04/24/2014 Procedures Procedure Name Priority Date/Time Associated Diagnosis Comments LIPID PANEL W REFLEX MEASURED LDL Routine 08/22/2015 8:01 AM [facility] Encounter for screening for lipid disorder XR MAMMO BILAT SCREEN FFDM (IA) Routine 08/21/2015 1:15 PM [facility]RARIAN [facility] Visit for screening mammogram ANTI HCV Routine 04/24/2014 10:00 AM CDT Need for hepatitis C screening test XR DXA BONE DENSITY 2 SITES AXIAL Routine 09/29/2011 4:34 PM [facility]RARIAN [facility] DEPARTMENT osteopenia from Last 3 Months or Most Recently Relevant to Health Maintenance Results * (ABNORMAL) LIPID PANEL W REFLEX MEASURED LDL ([id number]) (08/22/2015 8:01 AM [facility]RAR[facility]) CHOLESTEROL,TOTAL 228(H) 100 - 199 mg/dL 08/22/2015 8:49 AM [facility]RARIAN [facility] DEPARTMENT [facility] TRIGLYCERIDES 134 <150 mg/dL 08/22/2015 8:49 AM [facility]RARIAN [facility] OR DEPARTMENT [facility] HDL CHOLESTEROL 63 >40 mg/dL 08/22/2015 8:49 AM [facility]RARIAN [facility] DEPARTMENT [facility] NON-HDL CHOLESTEROL 165(H) <145 mg/dl 08/22/2015 8:49 AM [facility] CHOL/HDL RATIO 3.62 <4.50 08/22/2015 8:49 AM [facility] LDL CHOLESTEROL 138(H) <=130 mg/dL 08/22/2015 8:49 AM [facility] PATIENT STATUS FASTING 08/22/2015 8:49 AM [facility] DEPARTMENT [facility] Blood specimen (specimen) BLOOD SPECIMEN / Unknown Venipuncture / Unknown 08/22/2015 8:01 AM [facility]RARIAN [facility] DEPARTMENT 08/22/2015 8:01 AM CHIEF LIBRARIAN [facility] OR DEPARTMENT Corina Calle MD CHEMISTRY [facility] [address] [place] [address], * XR MAMMO BILAT SCREEN FFDM (08/21/2015 1:15 PM CHIEF LIBRARIAN [facility] DEPARTMENT) Anatomical Region Laterality Modality BREASTS, Breast Left, Breast Right Bilateral Mammography Impressions 08/22/2015 12:40 PM [facility]IE[facility]RARIAN [facility] DEPARTMENT ??There is no radiographic evidence for malignancy. ??Recommend annual mammograms. A lay language report of this examination will be provided to the patient. MAMMOGRAM ASSESSMENT: ??ACR 2 Benign Narrative 08/22/2015 12:40 PM CHIEF LIBRARIAN [facility] DEPARTMENT XR MAMMO BILAT SCREEN FFDM [G0202.0] CLINICAL HISTORY: ??This is an asymptomatic 60 y.o. patient. INDICATION FOR EXAM: Mammogram Screening. TECHNIQUE: CC & MLO views were obtained. ??This digital study was evaluated with the assistance of Computer-Aided Detection. COMPARISON FILMS: Yes 04/24/14 [facility] 12/07/12 [facility] FINDINGS: ??Mammographically, the breast tissue is extremely dense. ??This may lower the sensitivity of mammography. ??No suspicious masses or microcalcifications. ??Benign appearing calcifications within both breasts. Corina Calle MD MAMMO * ANTI HCV [[id number]] (04/24/2014 10:00 AM CDT) HEPATITIS C ANTIBODY Non-Reacti ve Non-Reacti ve 04/24/2014 5:40 PM CDT [facility] Blood specimen (specimen) BLOOD SPECIMEN / Unknown Venipuncture / Unknown 04/24/2014 10:00 AM CDT 04/24/2014 10:00 AM CDT Narrative [facility] - 04/24/2014 5:40 PM CDT Antibodies to HCV not detected; does not exclude the possibility of exposure to HCV. Jelly Cobb SEND OUTS [facility] [address] [place] [address], [place] * XR DEXA BONE DENSITY 2 SITES (09/29/2011 4:34 PM CHIEF LIBRARIAN [facility] OR DEPARTMENT) Anatomical Region Laterality Modality Spine, HIPS, HIPL, HIPR Other Narrative 10/02/2011 7:54 AM [facility]IE[facility]RARIAN [facility] DEPARTMENT Please see scanned document for results of this study. Procedure Note Rosa Rod PA - 10/02/2011 Please see scanned document for results of this study. Jelly Cobb DEXA from Last 3 Months or Most Recently Relevant to Health Maintenance [place] JIANG [id number]
== END 2024-05-16 15:02 | disposition home or self-care (01) ==
LOC: NFLDREF 15:02
PROVIDERS: PCP Internal Medicine; Visit Provider Internal Medicine
DX: M81.0 Age-related osteoporosis without current pathological fracture (principal)
CPT/HCPCS: 80048

== ENCOUNTER 2024-05-19 10:53 | Outpatient (RCR) | payer MEDICARE, BC, SELFPAY ==
--- NOTE | 2024-05-18 10:41 | PC.NURSE ---
Diagnosis: Osteoporosis.
[2024-05-19 11:05] VITALS: BP 143/89; PULSE 80; RESP 16; TEMP 36.2; O2SAT 100
[2024-05-19] MEDS: ZOLEDRONIC ACID 5 mg/100 ml 100 ML 400 MG IVPB (11:30)
== END 2024-11-15 23:59 | disposition home or self-care (01) ==
LOC: CCIC 10:53
PROVIDERS: PCP Internal Medicine; Referring Provider Internal Medicine; Visit Provider Clinical Nurse Specialist
DX: M81.0 Age-related osteoporosis without current pathological fracture (principal); M54.50 Low back pain, unspecified; G89.29 Other chronic pain
CPT/HCPCS: 96374; 97110; 97162; J3489

== ENCOUNTER 2024-06-08 09:00 | Outpatient (RCR) | payer MEDICARE, BC, SELFPAY ==
--- NOTE | 2024-05-19 13:49 | PT.OPEX ---
PT [place] Outpatient Eval PT [facility] Outpatient Eval Start: 05/19/24 07:27 Freq: Status: Active Protocol: Document 05/19/24 07:28 CRP (Rec: 05/19/24 13:49 CRP [id number]) E-signed By Chan Conte PT Physical Therapy Outpatient Evaluation Insurance Information Recert Due Date 08/17/24 Insurance Name Medicare B Medical Diagnosis Chronic LBP Referring MD Dr Bhatt Subjective Subjective Pt has had a long his of LBP. Pt would like to learn exercises she can do to manage her back pain while being aware of her osteoporosis. Pain increases with physical activity, lifting, bending. Pain does not cause significant limitations with daily activity. If she sleeps in a bed with a soft mattress she does tend to have more pain. PMHx: Osteoporosis Current Work Status Retired Objective Other/Pertinent Objective Posture: Active ext pattern Trunk ROM: flex mod dec with LBP - no reversal of lumbar lordosis. Seated trunk flex WNL. Ext min dec, R SB min dec , L SB mod dec with back strain, bilat rot min/mod dec Hip ROM WNL bilat SLR negative bilat MMT: MYotomes WNL. Lumbopelvic control shows diminished abilities Assessment Assessment/Impression Pt presents to the clinic with chronic LBP that is consistent with lumbar spine DDD/DJD and poor tolerance to sagittal plane motion control. Pts presentation is characterized by painful loss of lumbar spine ROM, tightness through both hips, decreased lumbopelvic nm control and general weakness and deconditioning. Skilled PT is necessary to incorporate ther ex, nm mila, ther act, manual therapy and pt education. Plan of Care Rehabilitation Potential Excellent Physical Therapy Goals 1. Pt will be independent with HEP in 8 weeks. 2. 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 3. Pt will return to exer in the gym without c.o in 12 weeks. Coordination/Communication With Referral Source Treatment Plan/Direct Interventions Joint Mobilization,Manual Therapy,Neuromuscular Re-ed, Self-Care/Home Management, Therapeutic Activities, Therapeutic Exercises Frequency/Duration 1-2x/wk for 12 weeks Patient Will Be Discharged From Therapy Completion of LTG(s),Skills Plateau,Independent w/HEP, Independently Progressing Evaluation Billing Untimed Code Treatment Minutes 40 Complexity Moderate Certification Information Initial Certification Date 05/19/24 Ending Certification Date 08/17/24 Provider Signature Required Yes Provider Signature Shows Agreement With POC & Medical Necessity Physician NPI Number Write NPI# Here Physician Comment/Change : Physician Signature & Date Requested Please Sign/Date Here
== END 2024-09-27 15:34 | disposition home or self-care (01) ==
PROVIDERS: PCP Internal Medicine; Visit Provider Internal Medicine
DX: M54.50 Low back pain, unspecified (principal); G89.29 Other chronic pain; Z51.89 Encounter for other specified aftercare
CPT/HCPCS: 97110; 97112; 97162; 97535

== ENCOUNTER 2025-07-25 07:49 | Outpatient (CLI) | payer MEDICARE, BC, SELFPAY | END 2025-07-25 07:50 | disposition home or self-care (01) | LOC: RAD 07:49 | PROVIDERS: PCP Internal Medicine; Visit Provider Internal Medicine | DX: I38 Endocarditis, valve unspecified (principal); I35.1 Nonrheumatic aortic (valve) insufficiency; I34.0 Nonrheumatic mitral (valve) insufficiency; I35.8 Other nonrheumatic aortic valve disorders; R01.1 Cardiac murmur, unspecified | CPT/HCPCS: 93306 ==